=== PATIENT | female | born 1980 | race Caucasian/White ===

== ENCOUNTER 2017-04-30 08:46 | Day surgery (SDC) | payer OTHER ==
[~2017-04-30 08:46] MED LIST: Buffered Lidocaine 0.9% SYRIN* 5 ML/SYR SYRINGE INTRADERM ONE; Buffered Lidocaine 0.9% SYRIN* 5 ML/SYR SYRINGE ONE; Bupivacaine 0.5% SDV PF* 30 ML VIAL ONE; Clindamycin 900 MG IVPREMIX(* 900 MG/50 ML SDV IV ONE; Dexamethasone IV* 4 MG/ML 1 ML (4 MG) IV SLOW PU ONE; Dexamethasone IV* 4 MG/ML 1 ML (4 MG) ONE; Famotidine IV* 10 MG/ML 2 ML (20 mg) IV ONE; Famotidine IV* 10 MG/ML 2 ML (20 mg) ONE
[2017-04-30 08:58] LABS: Manual Entry Verification JEA0012; UR Preg Internal Control QC Line Present
[2017-04-30] MEDS ORDERED: fentaNYL* 50 MCG/ML 2 ML VIAL (100 MCG VIAL) ONE ×2 (10:14→10:22)
[2017-04-30] MEDS ORDERED: Midazolam* 1 MG/ML 5 ML VIAL (5 MG) ONE (10:14)
[2017-04-30] MEDS ORDERED: Lidocaine 2% PF * 5 ML VIAL ONE (10:22)
[2017-04-30] MEDS ORDERED: Propofol* 10 MG/ML 20 ML BTL IV PUSH ONE ×2 (10:22→10:24)
[2017-04-30] MEDS ORDERED: Succinylcholine* 20 MG/ML 10 ML VIAL ONE (10:22)
[2017-04-30] MEDS ORDERED: Ketorolac INJ* 30 MG/ML 1 ML VIAL ONE (10:42)
[2017-04-30] MEDS ORDERED: Ondansetron INJ* 2 MG/ML VIAL ONE (10:42)
[2017-04-30] MEDS ORDERED: PROCHLORPERAZINE INJ 5 MG/ML 2 ML VIAL IV PRN (10:55)
[2017-04-30] MEDS ORDERED: HYDROcodone/ACETAMIN 5-325 MG* 1 TAB PO PRN (10:55)
[2017-04-30] MEDS ORDERED: fentaNYL* 50 MCG/ML 2 ML VIAL (100 MCG VIAL) IV PRN (10:55)
[2017-04-30] MEDS ORDERED: EPHEDrine (Pressors)* 50 MG/ML VIAL ONE (10:56)
[2017-04-30] MEDS ORDERED: oxyCODONE/Acetamin 5/325 MG* TAB ONE (12:22)
[2017-04-30] MEDS: oxyCODONE/Acetamin 5/325 MG* TAB PO PRN ×2 (12:24→12:25)
[2017-04-30 12:28] VITALS: BP 111/64
--- NOTE | 2017-05-01 03:12 | OP ---
DATE OF OPERATION: 04/30/17 [facility] DATE OF : 76 SURGEON: Vinny Payan MD TECHNICAL SYSTEM ANALYST: Mirta Chirinos PA-C ANESTHESIOLOGIST: Sally Rodriguez MD ANESTHESIA: General PRE-OPERATIVE DIAGNOSIS: Left ankle instability, os subfibulare. POST-OPERATIVE DIAGNOSIS: Left ankle instability, os subfibulare. OPERATIVE PROCEDURE: Left modified Brostrom ligament repair and excision of os trigonum or os subfibulare. DESCRIPTION OF PROCEDURE: The patient was taken to the operating room, lateral positioning used. We made a longitudinal incision over the distal fibula. We incised directly along the anterior and distal capsule, reflecting away from the border of the fibula. The 1 x 1 cm os subfibulare was isolated in the distal capsule and removed and sent to pathology. We then reflected the periosteum anterior to posterior over the distal fibula, passing through-bone sutures of #1 Vicryl. These through-bone sutures were attached to the capsule using Ramos-Emanuel sutures, snugging the capsule up tightly to the distal and anterior fibula. A small slip of the extensor retinaculum was also mobilized with its more lateral base attached. We swung this up overlapping the repair and sewing into the periosteum with 2-0 Vicryl sutures. We then irrigated thoroughly, closing subcu with 2-0 Vicryl, miguel for the skin, and a compression dressing and plaster splint applied. [id number]/[facility] #: [id number] MTDD
== END 2017-04-30 12:45 | disposition home or self-care (01) ==
LOC: OR 08:46
PROVIDERS: ATTEND Orthopaedic Surgery
DX: M25.372 Other instability, left ankle (principal); J45.909 Unspecified asthma, uncomplicated; G47.33 Obstructive sleep apnea (adult) (pediatric); E78.5 Hyperlipidemia, unspecified; Z68.38 Body mass index [BMI] 38.0-38.9, adult; D86.9 Sarcoidosis, unspecified
CPT/HCPCS: 81025; A9270-GY; C1776; J0330; J1100; J1885; J2250; J2405; J2704; J3010

== ENCOUNTER 2017-11-07 10:26 | Emergency (ER) | payer OTHER ==
[2017-11-07 10:45] VITALS: BP 132/75
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
--- NOTE | 2017-11-07 11:54 | RAD ---
CLINICAL HISTORY: Left mid back pain and abdominal pain COMPARISON: February 09, 2016 TECHNIQUE: Multiple contiguous axial CT scans were obtained of the abdomen and pelvis, without intravenous contrast enhancement. Coronal and sagittal multiplanar reformations are submitted for review. Oral contrast was not administered. FINDINGS: The study is limited by the lack of intravenous contrast. This limits evaluation of the solid organs and vasculature. LUNG BASES: The lung bases are clear. LIVER: The liver is normal in shape, size, contour, and attenuation. BILE DUCTS: There is no intrahepatic or extrahepatic biliary dilatation. GALLBLADDER: The gallbladder is not visualized. Surgical clips are noted in the gallbladder fossa. PANCREAS: The pancreas is normal, without mass or ductal dilatation. SPLEEN: Normal in size and appearance. UPPER GI TRACT: Evaluation of the gastrointestinal tract is limited by incomplete gastric distention. The upper GI tract is unremarkable. SMALL BOWEL AND MESENTERY: The small bowel is normal in contour, course, and caliber. There is no obstruction or dilatation. There is mild stranding of the mesenteric fat with multiple small lymph nodes at the root of small bowel mesentery. This is stable from February 09, 2016. COLON: There are scattered diverticula of the distal colon. There is no pericolonic inflammatory change. There is a tubular, vermiform, hollow viscus that is blind ending, and originates from the cecum, consistent with a normal appendix. There is no periappendiceal inflammatory change. This is best seen on axial images 130-140. ADRENALS: Again noted is low-attenuation left adrenal mass measuring approximately 5.8 cm in size. This is stable from the previous examination. KIDNEYS: There is a punctate nonobstructing left renal calyceal stone in the midpole of left kidney measuring 0.2 cm. There is no hydronephrosis. This is stable from the previous examination. There is increased density of the renal pyramids suggestive of medullary nephrocalcinosis, also stable. BLADDER: The bladder is incompletely distended but is grossly normal. PELVIC ORGANS: The uterus and adnexa are grossly normal for technique. AORTA: The aorta is normal. IVC: Unremarkable LYMPH NODES: There is no lymphadenopathy by size criteria. ABDOMINAL WALL: There is no evidence for abdominal wall hernia. BONES AND SOFT TISSUES: The bones and soft tissues are unremarkable. OTHER: None IMPRESSION: 1. STABLE, PUNCTATE NONOBSTRUCTING LEFT RENAL CALYCEAL STONE. NO HYDRONEPHROSIS. 2. STATUS POST CHOLECYSTECTOMY. 3. STABLE LEFT ADRENAL MASS. 4. MILD INFLAMMATORY CHANGE OF THE ROOT OF SMALL BOWEL MESENTERY SUGGESTIVE OF MESENTERIC PANNICULITIS
== END 2017-11-07 12:29 | disposition home or self-care (01) ==
LOC: UCEAST 10:26
DX: K65.4 Sclerosing mesenteritis (principal); N20.0 Calculus of kidney; E27.9 Disorder of adrenal gland, unspecified; R30.0 Dysuria; E03.9 Hypothyroidism, unspecified; J45.909 Unspecified asthma, uncomplicated; R56.9 Unspecified convulsions; Z90.49 Acquired absence of other specified parts of digestive tract; Z88.6 Allergy status to analgesic agent; Z88.5 Allergy status to narcotic agent; Z88.0 Allergy status to penicillin; Z87.891 Personal history of nicotine dependence
CPT/HCPCS: 74176; 81003; 99212; G0463

== ENCOUNTER 2018-01-17 02:57 | Emergency (ER) | payer OTHER ==
[2018-01-17] MEDS ORDERED: Acetaminophen TAB* 325 MG PO ONE (03:54)
[2018-01-17] MEDS ORDERED: NS 0.9% 1000 ML* 1,000 ML IV ONE (03:54)
[2018-01-17 04:20] LABS: ABS Basophils 0 10^3/ul (0-0.2); ABS Eosinophils 0.1 10^3/ul (0-0.6); ABS Lymphocytes 0.6 10^3/ul (1.0-4.8); ABS Monocytes 0.6 10^3/ul (0-0.8); ABS Neutrophils 7.8 10^3/ul (1.5-7.7); ABS Nucleated RBC 0 10^3/ul; Eosinophil % 0.6 % (0-6); Hematocrit 38 % (35-47); Hemoglobin 12.6 g/dl (12.0-16.0); Lymphocyte % 6.2 % (25-47); Mean Corpuscular HGB Conc 34 g/dl (31-36); Mean Corpuscular Hemoglobin 28 pg (27-31); Mean Corpuscular Volume 84 fL (80-97); Mean Platelet Volume 8.2 um3 (7.4-10.4); Nucleated Red Blood Cells % 0; Platelet Count 219 10^3/ul (150-450); Red Blood Count 4.49 10^6/ul (4.0-5.4); Red Cell Distribution Width 15 % (10.5-15)
[2018-01-17 04:35] LABS: EGFR Non-African American 54.7 (>60)
[2018-01-17 06:32] LABS: Urine Appearance Turbid; Urine Blood 2+ (Negative); Urine Color Yellow; Urine Ketones Negative (Negative); Urine Protein Negative (Negative); Urine Specific Gravity 1.025 (1.010-1.030); Urine Urobilinogen Negative (Negative)
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
[2018-01-17 07:06] VITALS: BP 123/70
--- NOTE | 2018-01-17 08:35 | RAD ---
HISTORY: Fever, cough COMPARISONS: January 09, 2018 VIEWS: 4: Frontal dual-energy and lateral views of the chest. FINDINGS: CARDIOMEDIASTINAL SILHOUETTE: The cardiomediastinal silhouette is normal. BRITTNEY: The brittney are normal. PLEURA: The costophrenic angles are sharp. No pleural abnormalities are noted. LUNG PARENCHYMA: The lungs are clear. ABDOMEN: The upper abdomen is clear. There is no subphrenic gas. BONES AND SOFT TISSUES: No bone or soft tissue abnormalities are noted. OTHER: An implantable platform architect is noted in the left anterior chest. IMPRESSION: NO ACTIVE CARDIOPULMONARY DISEASE.
== END 2018-01-17 07:05 | disposition home or self-care (01) ==
LOC: ED 02:57
DX: J11.1 Influenza due to unidentified influenza virus with other respiratory manifestations (principal); R50.9 Fever, unspecified; R05 Cough; Z87.891 Personal history of nicotine dependence
CPT/HCPCS: 36415; 71046; 80048; 81003; 81015; 85025; 87502; 99282; A9270-GY

== ENCOUNTER 2018-02-21 09:25 | Emergency (ER) | payer OTHER ==
[2018-02-21 09:53] VITALS: BP 140/90
[2018-02-21] MEDS ORDERED: Cyclobenzaprine TAB* 10 MG PO ONE (10:16)
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
== END 2018-02-21 11:25 | disposition home or self-care (01) ==
LOC: UCEAST 09:25
DX: M50.323 Other cervical disc degeneration at C6-C7 level (principal); E07.9 Disorder of thyroid, unspecified; J45.909 Unspecified asthma, uncomplicated; Z88.6 Allergy status to analgesic agent; Z88.5 Allergy status to narcotic agent; Z88.0 Allergy status to penicillin; Z87.891 Personal history of nicotine dependence
CPT/HCPCS: 72050; 99213; A9270-GY; G0463

== ENCOUNTER 2018-04-23 17:36 | Emergency (ER) | payer OTHER ==
[2018-04-23 17:55] VITALS: BP 116/69
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
== END 2018-04-23 18:27 | disposition home or self-care (01) ==
LOC: UCEAST 17:36
DX: L25.8 Unspecified contact dermatitis due to other agents (principal); L73.9 Follicular disorder, unspecified; I10 Essential (primary) hypertension; Z88.6 Allergy status to analgesic agent; Z91.030 Bee allergy status; Z88.0 Allergy status to penicillin; Z88.8 Allergy status to other drugs, medicaments and biological substances; Z88.5 Allergy status to narcotic agent; Z87.891 Personal history of nicotine dependence
CPT/HCPCS: 99212; G0463

== ENCOUNTER 2018-12-03 09:10 | Emergency (ER) | payer OTHER ==
[2018-12-03 09:36] VITALS: BP 129/87
[2018-12-03] MEDS ORDERED: Acetaminophen TAB* 325 MG PO ONE (10:07)
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
== END 2018-12-03 11:10 | disposition home or self-care (01) ==
LOC: UCEAST 09:10
DX: S63.501A Unspecified sprain of right wrist, initial encounter (principal); F17.210 Nicotine dependence, cigarettes, uncomplicated; I10 Essential (primary) hypertension; J45.909 Unspecified asthma, uncomplicated; Z88.0 Allergy status to penicillin; Z88.5 Allergy status to narcotic agent; Z91.09 Other allergy status, other than to drugs and biological substances; Z91.030 Bee allergy status; W22.03XA Walked into furniture, initial encounter; Y92.9 Unspecified place or not applicable
CPT/HCPCS: 99212; A9270-GY; G0463

== ENCOUNTER 2018-12-13 14:23 | Emergency (ER) | payer OTHER ==
[2018-12-13 14:54] LABS: Influenza A Molecular NEGATIVE (Negative); Influenza B Molecular NEGATIVE (Negative)
[2018-12-13] MEDS ORDERED: Albuterol/Ipratropium NEB.SOL* Albuterol 2.5 MG/Ipratropium 0.5 MG 3 ML INH ONE (16:37)
[2018-12-13] MEDS ORDERED: Azithromycin TAB* 250 MG PO ONE (16:38)
[2018-12-13] MEDS ORDERED: predniSONE TAB* 20 MG PO ONE (16:39)
[2018-12-13 16:41] LABS: ABS Basophils 0.1 10^3/ul (0-0.2); ABS Eosinophils 0.2 10^3/ul (0-0.6); ABS Lymphocytes 2.1 10^3/ul (1.0-4.8); ABS Monocytes 0.5 10^3/ul (0-0.8); ABS Neutrophils 5.7 10^3/ul (1.5-7.7); ABS Nucleated RBC 0 10^3/ul; Eosinophil % 2.5 %; Hematocrit 39 % (35-47); Hemoglobin 12.8 g/dl (12.0-16.0); Lymphocyte % 24.4 %; Mean Corpuscular HGB Conc 33 g/dl (31-36); Mean Corpuscular Hemoglobin 28 pg (27-31); Mean Corpuscular Volume 85 fL (80-97); Mean Platelet Volume 7.8 fL (7.4-10.4); Nucleated Red Blood Cells % 0; Platelet Count 245 10^3/ul (150-450); Red Blood Count 4.56 10^6/ul (4.00-5.40); Red Cell Distribution Width 14 % (10.5-15); White Blood Count 8.6 10^3/ul (3.5-10.8)
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
[2018-12-13 17:00] LABS: Activated Partial Thrombo Time 31.3 seconds (26.0-36.3); INR 0.96 (0.77-1.02)
[2018-12-13 17:01] LABS: ALT 20 U/L (7-52); AST 22 U/L (13-39); Albumin 4.5 g/dL (3.2-5.2); Albumin/Globulin Ratio 1.4 (1-3); Alkaline Phosphatase 85 U/L (34-104); Anion Gap 6 mmol/L (2-11); BUN/Creatinine Ratio 23.2 (8-20); Blood Urea Nitrogen 22 mg/dL (6-24); C Reactive Protein 17.92 mg/L (<8.01); CO2 Carbon Dioxide 25 mmol/L (22-32); Calcium 9.5 mg/dL (8.6-10.3); Chloride 107 mmol/L (101-111); EGFR African American 78.8 (>60); EGFR Non-African American 65.2 (>60); Globulin 3.3 g/dL (2-4); Glucose 104 mg/dL (70-100); Potassium 3.6 mmol/L (3.5-5.0); Sodium 138 mmol/L (135-145); Total Protein 7.8 g/dL (6.4-8.9)
[2018-12-13 17:05] LABS: CKMB ng/mL 0.7 ng/mL (0.6-6.3)
[2018-12-13 17:08] LABS: HCG Pregnancy < 0.60 mIU/mL
[2018-12-13 17:20] VITALS: BP 129/75
== END 2018-12-13 17:18 | disposition home or self-care (01) ==
LOC: ED 14:23
DX: J18.9 Pneumonia, unspecified organism (principal); J98.01 Acute bronchospasm; J45.909 Unspecified asthma, uncomplicated; R06.02 Shortness of breath; R05 Cough; R06.2 Wheezing; R07.9 Chest pain, unspecified; R50.9 Fever, unspecified; Z88.0 Allergy status to penicillin; Z88.6 Allergy status to analgesic agent; I10 Essential (primary) hypertension; K21.9 Gastro-esophageal reflux disease without esophagitis; Z87.442 Personal history of urinary calculi; F17.210 Nicotine dependence, cigarettes, uncomplicated
CPT/HCPCS: 36415; 71046; 80053; 82553; 83605; 84484; 84702; 85025; 85379; 85610; 85730; 86140; 87040; 99283; A9270-GY; J7512

== ENCOUNTER 2019-02-06 08:41 | Emergency (ER) | payer OTHER ==
[2019-02-06] MEDS ORDERED: Ketorolac INJ* 60 MG/2 ML VIAL IM ONE (10:05)
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
[2019-02-06 11:05] VITALS: BP 120/84
== END 2019-02-06 11:03 | disposition home or self-care (01) ==
LOC: UCEAST 08:41
DX: M62.830 Muscle spasm of back (principal); M54.5 Low back pain; M51.37 Other intervertebral disc degeneration, lumbosacral region; M51.34 Other intervertebral disc degeneration, thoracic region; E78.5 Hyperlipidemia, unspecified; J44.9 Chronic obstructive pulmonary disease, unspecified; K21.9 Gastro-esophageal reflux disease without esophagitis; Z88.5 Allergy status to narcotic agent; Z88.0 Allergy status to penicillin; Z88.8 Allergy status to other drugs, medicaments and biological substances; Z88.6 Allergy status to analgesic agent; Z91.030 Bee allergy status; Z87.891 Personal history of nicotine dependence
CPT/HCPCS: 72070; 72110; 81003; 84702; 96372; 99212; G0463; J1885

== ENCOUNTER 2019-03-27 09:53 | Emergency (ER) | payer OTHER ==
--- OUTSIDE RECORDS SUMMARY | 2019-03-27 10:01 | XMS REPORT | Continuity of Care Document ---
:1980 External Reference #:[id number] Author Name DANIELLE Urbina Address [address] [place] [address] Care Team Providers Name Role Phone Julianna Knight M.D. Care Team Information Automatic Tire Tester Unavailable Julianna Knight M.D. Primary Care Physician Unavailable Payers Date Identification Numbers Payment Provider Subscriber Effective: 2013 Policy Number: [id number] [facility] Group Number: [id number] #[id number] [address] Group Name: Medicaid [place] [address] PayID: [id number] Problems Active Problems Provider Date Sleep apnea Sussy Gagnon M.D. Onset: 02/12/2019 Allergic rhinitis due to animals Sussy Gagnon M.D. Onset: 02/12/2019 Allergic rhinitis due to pollen Sussy Gagnon M.D. Onset: 02/12/2019 Uncomplicated moderate persistent asthma Sussy Gagnon M.D. Onset: 2018 Family History Date Family Member(s) Observation Comments General Heart Disease General Emphysema General Diabetes General Hypertension Father Heart Disease Father Emphysema Father due to Heart Attack () Mother Diabetes Mother Hypertension Social History Type Date Description Comments Sex Unknown Marital Status Legal Status: Lives With Spouse Home Environment Does not use air scientist immunology Home Environment Has a window air conditioner Home Environment Stairs are not present Home Environment There is no basement Home Environment Cotton Comforter Home Environment Pillows contain feathers Home Environment There are no draperies in the home Home Environment The home is harry Home Environment The floors are tile Home Environment The floors are carpeted Home Environment Uses baseboard heating Home Environment [place] first [place] Home Environment Water Source: City Tobacco Use Start: Unknown Home is not smoke-free Tobacco Use Start: Unknown Work is not smoke-free Pets 2 dogs present 13 years and 1 years, allowed in [place] Occupation paper delivery Spouse: Does the paper Hobbies: Phone games, TV ETOH Use Denies alcohol use Tobacco Use Start: Unknown End: Patient is a former Unknown smoker Recreational Drug Use Never Used Drugs Allergies, Adverse Reactions, Alerts Active Allergies Reaction Severity Comments Date Penicillin Nausea Moderate 02/12/2019 Morphine Nausea Moderate 02/12/2019 Antihistamines rash Moderate 02/12/2019 Medications Active Medications SIG Qnty Indications Ordering Date Provider Nasacort Allergy 24HR spray 1 spray into 1units Bita 02/12/2019 each nostril one RICK DonaldP-C 55mcg/Act Aerosol time daily Optichamber Julia Use With Inhalers Unknown Misc Clopidogrel Bisulfate Take Two Tablets Unknown By Mouth On 6 26 75mg Tablets 18 And 1 Tablet Daily Untill Procedure Hydrocortisone Apply To Affected Unknown 0.5% Cream Area S Twice Daily For 10 Days Clindamycin HCL Abby Fournier, 150mg M.D. Capsules Chlorhexidine Swish With 15 Unknown Gluconate Milliliters For 30 0.12% Solution Seconds And Spit use twice a day Prevail Super Plus Use Four Times A Unknown Underwear Large Day Misc Fluticasone Inhale 1 puff Into Unknown Propionate/Salmeterol Lungs Two Times A Diskus Day 500-50mcg/Dose Aerosol Nystatin Apply To Affected Unknown 631600Iaao/GM Area S Two Times Cream A Day as Needed SM Aspirin Adult Low Take One Tablet By Unknown Strength Mouth Every Day 81mg Tablets DR Spiriva Respimat Inhale Two Puffs Unknown By Mouth Every Day 1.25mcg/Act Aerosol Ventolin HFA Inhale Two Puffs Unknown 108(90Base) By Mouth Four mcg/Act Aerosol Times A Day as Needed Ipratropium Nkight, Julianna, [place]/Albuterol M.D. Sulfate 0.5-2.5(3)mg/3ML Solution Pantoprazole Sodium Take One Tablet By Unknown 40mg Mouth Every Tablets DR Morning On An Empty Stomach Levothyroxine Sodium Take One Tablet By Unknown Mouth Every Day 75mcg Tablets Atorvastatin Calcium Take One Tablet By Unknown 20mg Mouth AT Bedtime Tablets Topiramate Knight, Julianna, 100mg Tablets M.D. Methocarbamol Unknown 750mg Tablets Cyclobenzaprine HCL Unknown 10mg Tablets Montelukast Sodium Take One Tablet By Unknown 10mg Mouth Every Day Tablets Tramadol HCL Take One Tablet By Unknown 50mg Tablets Mouth Every 6 To 8 Hours as Needed For Pain Maximum Daily Dose3 Amitriptyline HCL Knight Julianna, 25mg M.D. Tablets Immunizations CPT Code Status Date Vaccine Lot # 73757 Given Unknown Pneumococcal Vaccine 71042 Given Unknown Influenza Vaccine Vital Signs Date Vital Result Comment 02/27/2019 10:58am Height 64 inches 5'4" Weight 246.00 lb Weight 111.586 kg Respiratory Rate 21 /min Heart Rate 80 /min O2 % BldC Oximetry 99 % BP Systolic 117 mmHg BP Diastolic 71 mmHg Asthma Control Test 22 BMI (Body Mass Index) 42.2 kg/m2 02/12/2019 9:44am Height 64 inches 5'4" Weight 242.00 lb Weight 109.771 kg Respiratory Rate 20 /min Heart Rate 95 /min O2 % BldC Oximetry 90 % BP Systolic 97 mmHg BP Diastolic 58 mmHg Asthma Control Test 8 Fractional Exhaled Nitric Oxide 12 BMI (Body Mass Index) 41.5 kg/m2 Procedures Date Code Description Status 02/12/2019 43072 Nitric Oxide Gas Determination Completed 02/12/2019 89564 Skin Test Scratch # Of Units ____ Completed Encounters Type Date Location Provider Dx Diagnosis Office Visit 02/27/2019 Parul Donald, J45.40 Moderate persistent 11:00a TELEPHONE TRIAGE NURSE-C asthma, uncomplicated J30.1 Allergic rhinitis due to pollen J30.81 Allergic rhinitis due to animal (cat) (dog) hair and dander G47.30 Sleep apnea, unspecified Office Visit 02/12/2019 9:40a [facility] Sussy Gagnon, J45.40 Moderate persistent M.D. asthma, uncomplicated J30.1 Allergic rhinitis due to pollen J30.81 Allergic rhinitis due to animal (cat) (dog) hair and dander G47.30 Sleep apnea, unspecified Plan of Treatment Future Appointment(s):03/06/2019 11:00 am - Allergy Injection at [id number] - LATANYA Urbina-CJ45.40 Moderate persistent asthma, sbbpcnbglastoA33.1 Allergic rhinitis due to hkkkorN32.81 Allergic rhinitis due to animal (cat) (dog) hair and welcfaV83.30 Sleep apnea, unspecifiedRecommendations:Continue all medications as prescribed.Refrain from wearing perfumes/scented colognes while visitingour office. Try the Nasacort 2 sprays daily Try the levocetirizine 1 daily Discussed the three ways in which allergies are managed: (1) avoidance measures; (2) medications; (3) allergy immunotherapy. Discussed environmental controls. -Dust mite control barriers are recommended for mattress and pillows. Make sure the product specifies a pore size rating of 2-5 microns. Bigger and unspecified pore sizes may not be effective. -Wash all bedding in hot water once weekly. -Keep bedroom humidity below 50%. Dust mites thrive well in high humidity. You can start shots in a week
[2019-03-27 10:08] VITALS: BP 125/76
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
== END 2019-03-27 11:15 | disposition home or self-care (01) ==
LOC: UCEAST 09:53
DX: S93.402A Sprain of unspecified ligament of left ankle, initial encounter (principal); W01.0XXA Fall on same level from slipping, tripping and stumbling without subsequent striking against object, initial encounter; Y92.9 Unspecified place or not applicable; Z88.5 Allergy status to narcotic agent; Z87.891 Personal history of nicotine dependence
CPT/HCPCS: 99213; G0463

== ENCOUNTER 2019-05-17 18:22 | Emergency (ER) | payer OTHER ==
[2019-05-17 18:28] VITALS: BP 144/83
[2019-05-17] MEDS ORDERED: Ketorolac INJ* 30 MG/ML 1 ML VIAL IM ONE (18:46)
[2019-05-17] MEDS ORDERED: Cyclobenzaprine TAB* 10 MG PO ONE ×2 (18:47→18:53)
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
== END 2019-05-17 19:19 | disposition home or self-care (01) ==
LOC: UCEAST 18:22
DX: M62.830 Muscle spasm of back (principal); K21.9 Gastro-esophageal reflux disease without esophagitis; Z88.5 Allergy status to narcotic agent; Z88.0 Allergy status to penicillin; Z87.891 Personal history of nicotine dependence
CPT/HCPCS: 81002; 81025; 96372; 99213; A9270-GY; G0463; J1885

== ENCOUNTER 2019-08-27 15:07 | Emergency (ER) | payer OTHER ==
--- OUTSIDE RECORDS SUMMARY | 2019-08-27 15:20 | XMS REPORT | Continuity of Care Document ---
:1980 External Reference #:[id number] Author Name Eamon Diaz MD (transmitted by agent of provider Delia Galo) Address [address], [address] [place] [address] Care Team Providers Name Role Phone Anitra Pearce MD - Gastroenterology Care Team Information Picker / Packer Jane Mcdaniels MD - Neurology Care Team Information Picker / Packer [phone] Bernard Melvin MD - Neurology Care Team Information Picker / Packer [phone] Wilfred Curiel MD - Gastroenterology Care Team Information Picker / Packer [phone] Nusrat Montes MD - Obstetrics & Care Team Information Picker / Packer [phone] Gynecology Julianna Knight M.D. - Family Medicine Care Team Information Picker / Packer [phone] Problems Active Problems Provider Date Generalized convulsive epilepsy Skylar Jarvis M.D. Onset: 02/29/2012 Gastroenteritis Kitty Pena M.D. Onset: 10/31/2013 Pure hypercholesterolemia Skylar Jarvis M.D. Onset: 03/19/2012 Neoplasm of uncertain behavior of adrenal Skylar Jarvis M.D. Onset: 2011 gland Intrinsic asthma without status Junior Jaquez M.D. Onset: 07/15/2012 asthmaticus Low back pain Junior Jaquez M.D. Onset: 07/15/2012 Cervical disc disorder Junior Jaquez M.D. Onset: 09/16/2012 Epilepsy Remington Wynn M.D. Onset: 03/12/2013 Mixed hyperlipidemia Junior Jaquez M.D. Onset: 04/09/2013 Obesity Junior Jaquez M.D. Onset: 04/09/2013 Dysphagia Junior Jaquez M.D. Onset: 04/09/2013 Chest pain Remington Wynn M.D. Onset: 02/16/2014 Chest pain Remington Wynn M.D. Onset: 02/16/2014 Sarcoidosis Baltazar Choi M.D. Onset: 09/22/2014 Right upper quadrant pain Baltazar Choi M.D. Onset: 10/06/2014 Exacerbation of asthma Esther Bhatt MD Onset: 11/10/2015 Obstructive sleep apnea syndrome Esther Bhatt MD Onset: 11/10/2015 Hypothyroidism Junior Jaquez M.D. 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 Onset: 2015 complex partial seizures Dyspnea Esther Bhatt MD Onset: 04/02/2017 Gastroesophageal reflux disease Junior Jaquez M.D. Onset: 07/04/2017 Essential hypertension Junior Jaquez M.D. Onset: 01/07/2018 Joint derangement Yunier Yeager MD Onset: 01/14/2018 Social History Type Date Description Comments Sex Unknown Tobacco Use Start: Unknown End: Former Cigarette Smoker Unknown Tobacco Use Start: Unknown End: Former Cigarette Smoker 1-5 Unknown Cigarettes Daily Cigarette Use Pack Years - 12 Smoking Status Reviewed: 07/10/19 Former Cigarette Smoker 1-5 Cigarettes Daily ETOH Use Never used alcohol Recreational Drug Use Denies Drug Use Tobacco Use Start: Unknown End: Patient is a former smoker Unknown Exercise Type/Frequency Exercises regularly Allergies, Adverse Reactions, Alerts Active Allergies Reaction Severity Comments Date Penicillins vomiting 02/28/2012 Morphine and Related vomiting 02/28/2012 Ibuprofen Nausea and Vomiting 03/01/2012 Bee Sting Contact dermatitis 05/09/2012 Aspirin hives 05/05/2014 Antihistamines throw up 06/15/2016 Betadine rash 04/29/2018 Medications Active Medications SIG Qnty Indications Ordering Date Provider Nicorette as needed for 48units F17.210 Skylar Javris, 06/16/2019 2mg Lozenges cravings not to M.D. exceed 5 a day Mupirocin apply a thin 22gm L08.9 Skylar Jarvis, 06/16/2019 2% Ointment layer on the skin M.D. of affected area twice a day for 5 days Aspirin Ec Low Dose 1 by mouth every 30tabs Cesar Maria 06/05/2019 81mg day Roly Zepeda Tablets DR Acetaminophen-Codeine one by mouth 28tabs M54.41 Mariama 05/19/2019 #4 every 6 hours as Roly Torres 300-60mg Tablets needed for pain Naproxen Sodium one by mouth 45tabs S93.402A Julianna Knight MD 03/31/2019 275mg twice a day for Tablets one week, then as needed. Take with food Amitriptyline HCL 1 by mouth at 30tabs Julianna Knight MD 03/13/2019 50mg bedtime Tablets Tramadol HCL 1 by mouth every 90tabs Julianna Knight MD 02/19/2019 50mg Tablets 6-8 hours as needed for pain Cyclobenzaprine HCL 1 tab 3x/day as 45tabs M62.830 Julianna Knight MD 2018 5mg needed for muscle Tablets spasm Nebulizer use as directed 1units J45.909 Julianna Knight MD 12/20/2018 Kit/Tubing/Mouthpiece for acute asthma Kit Pantoprazole Sodium Take One Tablet 30tabs K21.9 Julianna Knight MD 2016 40mg By Mouth Every Tablets DR Morning On Empty Stomach Briefs Overnight Large for use 4 times 120units Julianna Knight MD 2016 daily and as Misc needed waist is 45-58 inches, fitted briefs. needs velcro tabs Ipratropium inhale contents 90ml R06.02 Julianna Knight MD 01/22/2017 [place]/Albuterol of 1 vial via Sulfate nebulizer three 0.5-2.5(3)mg/3ML times a day as Solution needed for acute asthma attack Levothyroxine Sodium 1 by mouth every 90tabs E03.9 Julianna Knight MD 2015 day 75mcg Tablets [facility] Use as Directed 80units Vinny Briggs 10/26/2015 Large as Needed M.D. Misc Atorvastatin Calcium one tab by mouth 90tabs E78.89 Julianna Knight MD 2014 20mg every night at Tablets bedtime Topiramate take one tablet 240tabs Julianna Knight MD 12/09/2014 100mg Tablets by mouth twice a day Montelukast Sodium take 1 tablet by 90tabs Skylar Jarvis, 09/30/2014 10mg mouth every day M.D. Tablets Advair Diskus install 1 puff 60units J45.20 Skylar Jarvis, 09/09/2014 twice a day M.D. 500-50mcg/Dose Aerosol Ventolin HFA 2 puffs by mouth 18gm Julianna Knight MD 10/30/2013 108(90Base) four times a day mcg/Act Aerosol as needed Microchamber use with inhalers merrill Knight MD 05/12/2013 [facility] Nebulizer use as directed 1herrera Knight MD 05/01/2013 Machine three times daily for asthma dx: asthma j45.909 Spiriva Respimat 2 inhalations 12gm Julianna Knight MD once daily 1.25mcg/Act Aerosol Nystatin apply to affected 30units Julianna Knight MD [id number]/GM area(s) two times Cream a day as needed Xyzal Allergy 24HR 1 by mouth every Unknown 5mg day Tablets Nasacort Allergy 24HR 2 puffs each nare Unknown every in the 55mcg/Act Aerosol morning Allergy Shots every Unknown History Medications Breo Ellipta 1 puff by mouth 60units J45.998 [place] Novakid, 03/06/2019 - daily 04/05/2019 200-25mcg/Inh Aerosol Tramadol HCL 1 by mouth every 21tabs Julianna Knight, 02/10/2019 - 50mg 6-8 hours as 02/19/2019 Tablets needed for pain. MDD 3 Amitriptyline HCL one by mouth in 30tabs Julianna Knight 02/10/2019 - 25mg the evening 03/13/2019 Tablets Prednisone 3 tabs once a 30tabs J45.901 Julianna Knight, 01/16/2019 - 20mg Tablets day x 3 daysMD 03/05/2019 reduce by one tab every 3 days until finished Medications Administered in Office Medication SIG Qnty Indications Ordering Provider Date Records Fee Julianna Knight MD 05/13/2019 Injection PPD Injection Nurse Visit A 01/07/2018 Immunizations CPT Code Status Date Vaccine Lot # [id number] Given 06/07/2016 Pneumonia Vaccine [id number] Given 09/22/2015 Fluvirin Im 3Yrs And Older 02003 Given 08/04/2013 Flu Vaccine Split Virus Preservative Free For [id number] Indiv 3Yr Older [id number] Given 03/19/2011 Tdap - Tetanus/Diptheria/Acellular Pertussis [id number] Vital Signs Date Vital Result Comment 07/10/2019 10:39am Height 64 inches 5'4" Weight 255.00 lb Heart Rate 64 /min BP Systolic Sitting 120 mmHg Lue large cuff BP Diastolic Sitting 82 mmHg Lue large cuff Respiratory Rate 12 /min O2 % BldC Oximetry 96 % BMI (Body Mass Index) 43.8 kg/m2 06/16/2019 10:06am Height 64 inches 5'4" Weight 256.00 lb Heart Rate 102 /min BP Systolic Sitting 124 mmHg BP Diastolic Sitting 83 mmHg O2 % BldC Oximetry 98 % BMI (Body Mass Index) 43.9 kg/m2 Results Test Date Facility Test Result H/L Range Note Laboratory test 02/24/2019 [facility] Topamax <1.0 g/mL [address] (Topiramate) [place] [address] [phone] Hemoglobin A1c (Glyco HGB) 5.9 % High 4.0-5.6 2 Basic Metabolic 02/24/2019 [facility] Sodium 140 mmol/L Normal 135-[address] [place] [address] [phone] Potassium 3.9 mmol/L Normal 3.5-5.0 Chloride 106 mmol/L Normal 101-111 Co2 Carbon Dioxide 28 mmol/L Normal 22-32 Anion Gap 6 mmol/L Normal 2-11 Glucose 78 mg/dL Normal 70-100 Blood Urea Nitrogen 20 mg/dL Normal 6-24 Creatinine 0.95 mg/dL Normal 0.51-0.95 BUN/Creatinine Ratio 21.1 High 8-20 Calcium 9.5 mg/dL Normal 8.6-10.3 Egfr Non- 64.8 >60 Egfr 78.4 >60 3 CBC Auto 02/24/2019 [facility] White Blood 8.2 10^3/uL Normal 3.5-10.[address] [place] [address] [phone] Red Blood Count 4.78 10^6/uL Normal 3.70-4.87 Hemoglobin 13.3 g/dL Normal 12.0-16.0 Hematocrit 40 % Normal 35-47 Mean Corpuscular Volume 84 fL Normal 80-97 Mean Corpuscular Hemoglobin 28 pg Normal 27-31 Mean Corpuscular HGB Conc 33 g/dL Normal 31-36 Red Cell Distribution Width 15 % Normal 10.5-15 Platelet Count 255 10^3/uL Normal 150-450 Mean Platelet Volume 8.1 fL Normal 7.4-10.4 Abs Neutrophils 5.4 10^3/uL Normal 1.5-7.7 Abs Lymphocytes 2.0 10^3/uL Normal 1.0-4.8 Abs Monocytes 0.5 10^3/uL Normal 0-0.8 Abs Eosinophils 0.2 10^3/uL Normal 0-0.6 Abs Basophils 0.1 10^3/uL Normal 0-0.2 Abs Nucleated RBC 0.0 10^3/uL Granulocyte % 65.9 % Lymphocyte % 24.8 % Monocyte % 6.0 % Eosinophil % 2.3 % Basophil % 1.0 % Nucleated Red Blood Cells % 0.0 Laboratory test 02/24/2019 [facility] Immunoglobulin E 132 kU/L <= 214 [address] (Ige) [place] [address] [phone] Laboratory test 02/06/2019 [facility] Poc , Negative Negative [address] [place] [address] [phone] Poc Urinalysis 02/06/2019 [facility] Poc Glucose, Urine Negative Negative [address] [place] [address] [phone] Poc Bilirubin, Urine Negative Negative Poc Ketone, Urine Negative Negative Poc Specific [place], Urine 1.025 Normal 1.010-1.030 Poc Blood, Urine Trace-lysed Abnormal Negative Poc pH, Urine 5.0 Normal 5-9 Poc Protein, Urine Negative Negative Poc Urobilinogen, Urine 0.2 Negative Poc Nitrite, Urine Negative Negative Poc Leukocytes, Urine Negative Negative Poc Color, Urine Yellow Poc Clarity, Urine Clear 6 1 REFERENCE VALUE Reference values depend on clinical use: Anticonvulsant: 5.0-20.0 mcg/mL Psychiatric: 2.0-8.0 mcg/mL ADDITIONAL INFORMATION This test was developed and its performance characteristics determined by [facility] in a manner consistent with CLIA requirements. This test has not been cleared or approved by the U.S. Food and Drug Administration. Test Performed by: [facility] [place] [address] 2 Therapeutic target for the treatment of diabetes mellitus patients is <7% HBA1C, and in selective patients <6.0%. Please refer to [place] [employer] Association diabetic care guidelines for further information. 3 Because ethnic data is not always readily available, this report includes an eGFR for both -Americans and non- Americans. The National Kidney Disease Education Program (NKDEP) does not endorse the use of the MDRD equation for patients that are not between the ages of 18 and 70, are , have extremes of body size, muscle mass, or nutritional status, or are non- or non-. According to the National Kidney Foundation, irrespective of diagnosis, the stage of the disease is based on the level of kidney function: Stage Description GFR(mL/min/1.73 m(2)) 1 Kidney damage with normal or decreased GFR 90 2 Kidney damage with mild decrease in GFR 60-89 3 Moderate decrease in GFR 30-59 4 Severe decrease in GFR 15-29 5 Kidney failure <15 (or dialysis) 4 Test Performed by: [facility] [place] [address] 5 Leather Belt Shaper: [id number] Test Disclaimer: Positive bacteria, red blood cells, white blood cells, early , low specific gravity, and other factors may cause false positive or negative results. It is recommended to retest unexpected results within 24 to 72 hours with a serum test when applicable. If is still suspected, please repeat test after 48 to 72 hours. 6 Leather Belt Shaper: [id number] Procedures Date Code Description Status 02/24/2019 18785 Diffusing Capacity Completed 02/24/2019 30650 Plethysmography Determination Lung Volumes & Per Airway Completed Resist 02/24/2019 26110 Pulmonary Function><Bronchodil Completed 01/16/2019 45120 Admin Of Inj Completed 01/16/2019 03887 Inhalation TX For Acute Airway Obstruction Completed W/Nebulizer/Inhaler 10/03/2018 84418335 Mammogram Completed 06/25/2014 29378305 Colonoscopy Completed 04/10/2014 60878110 Colonoscopy Completed 09/09/2013 42386830 Mammogram Completed Medical Devices Description No Information Available Encounters Type Date Location Provider Dx Diagnosis Office Visit 06/16/2019 [facility] Skylar Jarvis, L08.9 Local infection of 10:10a Zaid Dominguez M.D. the skin and subcutaneous tissue, unsp G40.909 Epilepsy, unsp, not intractable, without status epilepticus J45.909 Unspecified asthma, uncomplicated E78.5 Hyperlipidemia, unspecified E03.9 Hypothyroidism, unspecified F17.210 Nicotine dependence, cigarettes, uncomplicated Office Visit 06/05/2019 [facility] S93.402D Sprain of 10:45a [facility] Payan unspecified C.M.A. ligament of left ankle, subs encntr Office Visit 05/20/2019 Macrina Casillas S93.402D Sprain of 10:00a [facility] unspecified C.M.A. ligament of left ankle, subs encntr Office Visit 05/19/2019 [facility] Julianna Knight, M54.41 Lumbago with 10:40a Zaid Dominguez MD sciatica, right side Office Visit 04/01/2019 [facility] S93.402A Sprain of 10:30a [facility] Payan unspecified C.M.A. ligament of left ankle, init encntr Office Visit 03/31/2019 [facility] Fredrick Knight S93.402D Sprain of 2:40p Zaid Dominguez MD unspecified ligament of left ankle, subs encntr Office Visit 03/13/2019 [facility] Julianna Knight M54.5 Low back pain 10:00a Zaid Dominguez MD Office Visit 03/06/2019 [facility] Eamon Diaz J45.998 Other asthma 9:45a [facility] G47.33 Obstructive sleep apnea (adult) (pediatric) D86.9 Sarcoidosis, unspecified Office Visit 02/10/2019 2:20p [facility] Julianna Knight M54.5 Low back pain Zaid Dominguez MD Office Visit 01/25/2019 10:45a Pul[facility] And Eamon Diaz J45.998 Other asthma [facility] G47.33 Obstructive sleep apnea (adult) (pediatric) Office Visit 01/16/2019 11:00a Rodolfo Knight J45.901 Unspecified asthma Zaid Cardona MD with (acute) [address] exacerbation M62.830 Muscle spasm of back Assessments Date Code Description Provider 07/10/2019 J45.998 Other asthma Eamon Diaz MD 07/10/2019 G47.30 Sleep apnea, unspecified Eamon Diaz MD 06/16/2019 L08.9 Local infection of the skin and subcutaneous Skylar Jarvis M.D. tissue, unspecified 06/16/2019 G40.909 Epilepsy, unspecified, not intractable, Skylar Jarvis M.D. without status epilepticus 06/16/2019 J45.909 Unspecified asthma, uncomplicated Skylar Jarvis M.D. 06/16/2019 E78.5 Hyperlipidemia, unspecified Skylar Jarvis M.D. 06/16/2019 E03.9 Hypothyroidism, unspecified Skylar Jarvis M.D. 06/16/2019 F17.210 Nicotine dependence, cigarettes, Skylar Jarvis M.D. uncomplicated 06/05/2019 S93.402D Sprain of unspecified ligament of left Vinny Payan M.D. ankle, subsequent enc 05/20/2019 S93.402D Sprain of unspecified ligament of left Vinny Payan M.D. ankle, subsequent enc 05/19/2019 M54.41 Lumbago with sciatica, right side Julianna Knight MD 05/13/2019 G40.909 Epilepsy, unspecified, not intractable, Julianna Knight MD without status epilepticus 05/13/2019 J45.909 Unspecified asthma, uncomplicated Julianna Knight MD 05/13/2019 Z12.31 Encounter for screening mammogram for Julianna Knight MD malignant neoplasm of breast 05/13/2019 N76.0 Acute vaginitis Julianna Knight MD 04/01/2019 S93.402A Sprain of unspecified ligament of left Vinny Payan M.D. ankle, initial encoun 03/31/2019 S93.402D Sprain of unspecified ligament of left Julianna Knight MD ankle, subsequent enc 03/13/2019 M54.5 Low back pain Julianna Knight MD 03/06/2019 J45.998 Other asthma Eamon Diaz MD 03/06/2019 G47.33 Obstructive sleep apnea (adult) (pediatric) Eamon Diaz MD 03/06/2019 D86.9 Sarcoidosis, unspecified Eamon Diaz MD 02/24/2019 J45.909 Unspecified asthma, uncomplicated Esther Bhatt MD 02/10/2019 M54.5 Low back pain Julianna Knight MD 01/25/2019 J45.998 Other asthma Eamon Diaz MD 01/25/2019 G47.33 Obstructive sleep apnea (adult) (pediatric) Eamon Diaz MD 01/16/2019 J45.901 Unspecified asthma with (acute) exacerbation Julianna Knight MD 01/16/2019 M62.830 Muscle spasm of back Julianna Knight MD Plan of Treatment Future Appointment(s):07/18/2019 10:00 am - Julianna Knight MD at [facility] - [facility]07/28/2019 4:20 pm - Henrik James M.D. at [facility]07/10/2019 - Eamon Diaz MDJ45.998 Other asthmaComments:The patient was using Advair and Breo. I have told her to use Breo instead of Advair. the patient should continue to use Singulair Spiriva and Ventolin when necessary. She should continue to see an clinical nurse specialist for allergy shots and continue to use Nasacort. She is no longer smoking which is very positive.G47.30 Sleep apnea, unspecifiedNew Orders:Sleep Study Over Night & Cpap Titration If Positive, Ordered: 07/10/19Comments:I will order a sleep study.Follow up:3 months. 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
[2019-08-27 15:55] LABS: ABS Basophils 0.1 10^3/ul (0-0.2); ABS Eosinophils 0.2 10^3/ul (0-0.6); ABS Lymphocytes 1.6 10^3/ul (1.0-4.8); ABS Monocytes 0.4 10^3/ul (0-0.8); ABS Neutrophils 7.8 10^3/ul (1.5-7.7); Eosinophil % 1.6 %; Hematocrit 39 % (35-47); Hemoglobin 12.9 g/dL (12.0-16.0); Lymphocyte % 16.3 %; Mean Corpuscular HGB Conc 33 g/dL (31-36); Mean Corpuscular Hemoglobin 28 pg (27-31); Mean Corpuscular Volume 84 fL (80-97); Mean Platelet Volume 7.8 fL (7.4-10.4); Nucleated Red Blood Cells % 0.1; Platelet Count 268 10^3/uL (150-450); Red Cell Distribution Width 15 % (10-15); White Blood Count 10.1 10^3/uL (3.5-10.8)
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
[2019-08-27 16:21] LABS: ALT 23 U/L (7-52); AST 22 U/L (13-39); Albumin 4.4 g/dL (3.2-5.2); Albumin/Globulin Ratio 1.3 (1-3); Alkaline Phosphatase 81 U/L (34-104); Anion Gap 8 mmol/L (2-11); BUN/Creatinine Ratio 22.2 (8-20); Blood Urea Nitrogen 18 mg/dL (6-24); CO2 Carbon Dioxide 25 mmol/L (22-32); Calcium 9.7 mg/dL (8.6-10.3); Chloride 108 mmol/L (101-111); EGFR African American 94.3 (>60); EGFR Non-African American 77.9 (>60); Globulin 3.4 g/dL (2-4); Glucose 113 mg/dL (70-100); Potassium 3.5 mmol/L (3.5-5.0); Sodium 141 mmol/L (135-145); Total Protein 7.8 g/dL (6.4-8.9)
[2019-08-27 16:25] LABS: Acetaminophen < 15 mcg/mL; Alcohol < 10 mg/dL (<10); Salicylate < 2.50 mg/dL (<30)
[2019-08-27 16:39] VITALS: BP 138/98
[2019-08-27 16:54] LABS: Urine Appearance Clear; Urine Bacteria Absent (Absent); Urine Bilirubin Negative (Negative); Urine Blood 1+ (Negative); Urine Color Yellow; Urine Glucose Negative (Negative); Urine Ketones Negative (Negative); Urine Nitrite Negative (Negative); Urine Protein Negative (Negative); Urine Red Blood Cell Trace(0-2/hpf) (Absent); Urine Specific Gravity 1.024 (1.010-1.030); Urine Squamous Epithelial Cell Present (Absent); Urine Urobilinogen Negative (Negative); Urine White Blood Cell Trace(0-5/hpf) (Absent)
[2019-08-27 17:14] LABS: Urine Benzodiazepine Screen None Detected (None Detect); Urine Opiates Screen None Detected (None Detect)
== END 2019-08-27 16:36 | disposition home or self-care (01) ==
LOC: ED 15:07
DX: F91.8 Other conduct disorders (principal); E07.9 Disorder of thyroid, unspecified; E78.00 Pure hypercholesterolemia, unspecified; I10 Essential (primary) hypertension; K21.9 Gastro-esophageal reflux disease without esophagitis; F43.10 Post-traumatic stress disorder, unspecified; Z79.899 Other long term (current) drug therapy; Z88.6 Allergy status to analgesic agent; Z88.5 Allergy status to narcotic agent; Z88.0 Allergy status to penicillin; Z88.8 Allergy status to other drugs, medicaments and biological substances
CPT/HCPCS: 36415; 80053; 80307; 80320; 80329; 81003; 81015; 84443; 85025; 87086; 99282; G0480

== ENCOUNTER 2019-10-01 11:18 | Emergency (ER) | payer OTHER ==
[2019-10-01 12:04] VITALS: BP 121/63
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
== END 2019-10-01 12:22 | disposition home or self-care (01) ==
LOC: UCEAST 11:18
DX: J06.9 Acute upper respiratory infection, unspecified (principal); J45.909 Unspecified asthma, uncomplicated; F17.210 Nicotine dependence, cigarettes, uncomplicated; Z88.6 Allergy status to analgesic agent; Z91.030 Bee allergy status; Z88.0 Allergy status to penicillin; Z88.5 Allergy status to narcotic agent; Z88.8 Allergy status to other drugs, medicaments and biological substances
CPT/HCPCS: 99212; G0463

== ENCOUNTER 2019-10-29 03:48 | Emergency (ER) | payer OTHER ==
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
[2019-10-29 05:00] VITALS: BP 119/89
--- OUTSIDE RECORDS SUMMARY | 2019-10-29 05:06 | XMS REPORT | Continuity of Care Document ---
:1980 External Reference #:[id number] Author Name Lianet Gold MD (transmitted by agent of provider Lyssa Concepcion) Address [address] [place] [address] Care Team Providers Name Role Phone Anitra Pearce MD - Gastroenterology Care Team Information Senior It Security Analyst [phone] Jane Mcdaniels MD - Neurology Care Team Information Senior It Security Analyst [phone] Bernard Melvin MD - Neurology Care Team Information Senior It Security Analyst [phone] Wilfred Curiel MD - Gastroenterology Care Team Information Senior It Security Analyst Nusrat Montes MD - Obstetrics & Care Team Information Senior It Security Analyst Gynecology Julianna Knight M.D. - Family Medicine Care Team Information Senior It Security Analyst Problems Active Problems Provider Date Generalized convulsive [...] Pack Years - 12 Smoking Status Reviewed: 10/02/19 Former Cigarette Smoker 1-5 Cigarettes Daily ETOH [...] Medications SIG Qnty Indications Ordering Date Provider Benzonatate take 1 tab by 30caps R05 Lianet 10/02/2019 100mg mouth up to 3 MD Asif Capsules times daily as needed for cough Nicorette as needed for 48units F17.210 Skylar Jarvis, 06/16/2019 2mg Lozenges cravings not to M.D. exceed 5 a day Mupirocin apply a thin 22gm L08.9 Skylar Jarvis, 06/16/2019 2% Ointment layer on the skin M.D. of affected area twice a day for 5 days Aspirin Ec Low Dose 1 by mouth every 30tabs Cesar DJody 06/05/2019 81mg day Brand, M.DJody Tablets DR Acetaminophen-Codeine one by mouth 28tabs M54.41 Julianna Knight MD 2018 #4 every 6 hours as 300-60mg Tablets needed for pain Naproxen Sodium [...] velcro tabs Ipratropium inhale contents 90ml R06.02 Mariama 01/22/2017 [place]/Albuterol of 1 vial via [facility] Torres Sulfate nebulizer three 0.5-2.5(3)mg/3ML times a day as Solution needed for acute asthma attack Levothyroxine Sodium 1 by mouth every 90tabs E03.9 Julianna Knight MD 2015 day 75mcg Tablets [facility] Use as Directed 80units Vinny [place], 10/26/2015 Large as Needed M.D. [facility] Atorvastatin Calcium one tab by mouth 90tabs E78.89 Julianna Knight MD 2014 20mg every night at Tablets bedtime Topiramate take one tablet 240tabs Julianna Knight MD 12/09/2014 100mg Tablets by mouth twice a day Montelukast Sodium Take One Tablet 90tabs Syklar Jarvis, 09/30/2014 10mg By Mouth Every M.D. Tablets Day Advair Diskus install 1 puff 60units J45.20 Skylar Jarvis, 09/09/2014 twice a day M.D. 500-50mcg/Dose Aerosol Ventolin HFA 2 puffs by mouth 18gm Lianet 10/30/2013 108(90Base) four times a day MD Asif mcg/Act Aerosol as needed Microchamber use with inhalers 1units Julianna Knight MD 05/12/2013 [facility] Portable Nebulizer use as directed 1unparviz Knight MD 05/01/2013 Machine three times daily for asthma dx: asthma j45.909 Naproxen Take One Tablet Unknown 500mg Tablets By Mouth Twice A Day as Needed For Pain With Food Methocarbamol Unknown 750mg Tablets Prevail Super Plus Use Up To 4 Times Unknown Underwear Large Daily And as Misc Needed Cyclobenzaprine HCL Maliha Gutierrez, 10mg Tablets Afluria Quadrivalent Inject as Unknown Directed 2019-20 Suspension Breo Ellipta Inhale One puff Unknown By Mouth Every 100-25mcg/Inh Aerosol Day Optichamber Julia For Use With Unknown Mis Inhalers Doxycycline Hyclate Unknown 100mg Capsules Allergy Shots every Unknown Nasacort Allergy 24HR 2 puffs each nare Unknown every in the 55mcg/Act Aerosol morning Xyzal Allergy 24HR 1 by mouth every Unknown 5mg day Tablets Nystatin apply to affected 30units Julianna Knight MD [id number]/GM area(s) two times Cream a day as needed Spiriva Respimat 2 inhalations 12gm Julianna Knight MD once daily 1.25mcg/Act Aerosol History Medications Breo Ellipta 1 by mouth 60units J45.998 Eamon Novakalex, 07/10/2019 - every day 08/09/2019 100-25mcg/Inh Aerosol Medications Administered in Office Medication SIG Qnty Indications Ordering Provider Date Records Fee Henrik James, 09/08/2019 Injection M.DJody Records Fee Julianna Knight MD 05/13/2019 Injection PPD Nurse Visit A 01/07/2018 Injection Immunizations CPT Code Status Date Vaccine Lot # [id number] Given 07/14/2019 Influ Virus Vaccine, Quadrivalent, Split Virus, [place] [id number] Given 06/07/2016 Pneumonia Vaccine [id number] Given 09/22/2015 Fluvirin Im 3Yrs And Older [id number] Given 08/04/2013 Flu Vaccine Split Virus Preservative Free For [id number] Indiv 3Yr Older [id number] Given 03/19/2011 Tdap - Tetanus/Diptheria/Acellular Pertussis [id number] Vital Signs Date Vital Result Comment 10/02/2019 11:44am Height 64 inches 5'4" Weight 267.00 lb Heart Rate 92 /min BP Systolic 130 mmHg BP Diastolic 82 mmHg Body Temperature 98.6 F O2 % BldC Oximetry 95 % BMI (Body Mass Index) 45.8 kg/m2 07/10/2019 10:39am Height 64 inches 5'4" Weight 255.00 lb Heart Rate 64 /min BP Systolic Sitting 120 mmHg Lue large cuff BP Diastolic Sitting 82 mmHg Lue large cuff Respiratory Rate 12 /min O2 % BldC Oximetry 96 % BMI (Body Mass Index) 43.8 kg/m2 Results Test Acquired Date Facility Test Result H/L Range Note CBC Auto 08/27/2019 [facility] White Blood 10.1 10^3/uL Normal 3.5-10.[address] [place] [address] [phone] Red Blood Count 4.60 10^6/uL Normal 3.70-4.87 Hemoglobin 12.9 g/dL Normal 12.0-16.0 Hematocrit 39 % Normal 35-47 Mean Corpuscular Volume 84 fL Normal 80-97 Mean Corpuscular Hemoglobin 28 pg Normal 27-31 Mean Corpuscular HGB Conc 33 g/dL Normal 31-36 Red Cell Distribution Width 15 % Normal 10-15 Platelet Count 268 10^3/uL Normal 150-450 Mean Platelet Volume 7.8 fL Normal 7.4-10.4 Abs Neutrophils 7.8 10^3/uL High 1.5-7.7 Abs Lymphocytes 1.6 10^3/uL Normal 1.0-4.8 Abs Monocytes 0.4 10^3/uL Normal 0-0.8 Abs Eosinophils 0.2 10^3/uL Normal 0-0.6 Abs Basophils 0.1 10^3/uL Normal 0-0.2 Abs Nucleated RBC 0.0 10^3/uL Granulocyte % 77.5 % Lymphocyte % 16.3 % Monocyte % 4.0 % Eosinophil % 1.6 % Basophil % 0.6 % Nucleated Red Blood Cells % 0.1 Comp Metabolic 08/27/2019 [facility] Sodium 141 mmol/L Normal 135-[address] [place] [id number] [phone] Potassium 3.5 mmol/L Normal 3.5-5.0 Chloride 108 mmol/L Normal 101-111 Co2 Carbon Dioxide 25 mmol/L Normal 22-32 Anion Gap 8 mmol/L Normal 2-11 Glucose 113 mg/dL High 70-100 Blood Urea Nitrogen 18 mg/dL Normal 6-24 Creatinine 0.81 mg/dL Normal 0.51-0.95 BUN/Creatinine Ratio 22.2 High 8-20 Calcium 9.7 mg/dL Normal 8.6-10.3 Total Protein 7.8 g/dL Normal 6.4-8.9 Albumin 4.4 g/dL Normal 3.2-5.2 Globulin 3.4 g/dL Normal 2-4 Albumin/Globulin Ratio 1.3 Normal 1-3 Total Bilirubin 0.30 mg/dL Normal 0.2-1.0 Alkaline Phosphatase 81 U/L Normal 34-104 Alt 23 U/L Normal 7-52 Ast 22 U/L Normal 13-39 Egfr Non- 77.9 >60 Egfr 94.3 >60 1 Laboratory test 08/27/2019 [facility] Acetaminophen < 15 g/mL [address] [place] [address] [phone] Alcohol < 10 mg/dL Normal <10 Salicylate < 2.50 mg/dL <30 TSH (Thyroid Stim Horm) 7.00 mcIU/mL High 0.34-5.60 Urinalysis Profile 08/27/2019 [facility] [place] [address] [phone] Urine Appearance Clear Urine Specific [place] 1.024 Normal 1.010-1.030 Urine pH 5.0 Normal 5-9 Urine Urobilinogen Negative Negative Urine Ketones Negative Negative Urine Protein Negative Negative Urine Leukocytes Negative Negative Urine Blood 1+ Abnormal Negative Urine Nitrite Negative Negative Urine Bilirubin Negative Negative Urine Glucose Negative Negative Urine White Blood Cell Trace(0-5/hpf) Absent Urine Red Blood Cell Trace(0-2/hpf) Absent Urine Bacteria Absent Absent Urine Squamous Epithelial Cell Present Abnormal Absent Urine Drug 08/27/2019 [facility] Urine None Detected None Detect [facility] [place] [address] Screen [phone] Urine Barbiturates Screen None Detected None Detect Urine Benzodiazepine Screen None Detected None Detect Urine Cannabinoids Screen None Detected None Detect Urine Cocaine Screen None Detected None Detect Urine Opiates Screen None Detected None Detect Urine Phencyclidine Screen None Detected None Detect 3 Urine Culture And 08/27/2019 [facility] Urine Culture SEE RESULT [address] [place] [address] [phone] Lipid Profile 07/11/2019 [facility] Triglycerides 238 mg/dL 5 (Trig/Chol/HDL) [facility] [place] [address] [phone] Cholesterol 248 mg/dL 6 HDL Cholesterol 38.7 mg/dL 7 LDL Cholesterol 162 mg/dL 8 Laboratory 07/11/2019 [facility] TSH (Thyroid 4.26 Normal 0.34 -5.[address] Stim Horm) mcIU/[place] [address] [phone] T3 Free 3.30 pg/mL Normal 2.5-3.9 Free T4 (Free Thyroxine) 0.65 ng/dL Normal 0.61-1.12 1 Because ethnic data is not always readily [...] 15-29 5 Kidney failure <15 (or dialysis) 2 Therapeutic concentration: <50 ug/mL Toxic concentration: >120 ug/mL 3 The urine specimen was tested at the listed cutoffs: Drug class test level (ng/mL) Amphetamines 500 Barbiturates 200 Benzodiazepine metabolites 200 Cocaine metabolites 150 Cannabinoids 50 Opiates 300 Pcp 25 Specimen was received without chain of custody. Results should be used for medical purposes only. 4 SEE RESULT BELOW Name: BOB MORALES : [address]: Hang Jara MD Acct: [id number] Unit: [id number] AGE: 39 Location: ED Re08/27/19 SEX: F Status: REG ER SPEC: [id number] SISI: 08/27/19-[address] [facility] [address]: Cinthya SANTILLAN REQ: [id number] RECD: 08/27/19-1639 STATUS:COMP [facility] DR: Hang Knight MD _ SOURCE: URINE SPDESC: ORDERED: Urine Culture Procedure Result Reported Site Urine Culture Final 08/28/19- 1751 ML No growth of clinically significant organisms * ML - Main Lab . END OF REPORT DEPARTMENT OF PATHOLOGY, [address] [place] [address] Darek Fry M.D. Director [facility] # [id number] 5 Desirable: <150 Borderline High: 150-199 High: 200-499 Very High: >500 6 Desirable: <200 Borderline High: 200-239 High: >239 7 Low: <40 Desirable: 40-60 High: >60 8 Desirable: <100 Near Optimal: 100-129 Borderline High: 130-159 High: 160-189 Very High: >189 Procedures Date Code Description Status 08/02/2019 89254 Sleep Study Unattended,HRT Rate,Oxygen Sat,Resp Completed Effort/Airflow 10/03/2018 35645594 Mammogram Completed 06/25/2014 90140442 Colonoscopy Completed 04/10/2014 63316624 Colonoscopy Completed 09/09/2013 14973089 Mammogram Completed Medical Devices Description No Information Available Encounters Type Date Location Provider Dx Diagnosis Office Visit 07/10/2019 Pulmonology And Eamon Diaz MD J45.998 Other asthma 10:45a [facility] G47.30 Sleep apnea, unspecified Office Visit 06/16/2019 10:10a [facility] Internal Skylar L08.9 Local infection of Zaid Jarvis M.D. the skin and Ccmob subcutaneous tissue, unsp G40.909 Epilepsy, unsp, not intractable, without status epilepticus J45.909 Unspecified asthma, uncomplicated E78.5 Hyperlipidemia, unspecified E03.9 Hypothyroidism, unspecified F17.210 Nicotine dependence, cigarettes, uncomplicated Office Visit 06/05/2019 Ab Casillas S93.402D Sprain of 10:45a [facility] unspecified [place] ligament of left ankle, subs encntr Office Visit 05/20/2019 Ab Casillas S93.402D Sprain of 10:00a [facility] unspecified [place] ligament of left ankle, subs encntr Office Visit 05/19/2019 [facility] Internal Julianna Knight, M54.41 Lumbago with 10:40a Medicine - [facility] sciatica, right side Assessments Date Code Description Provider 10/02/2019 R05 Cough Lianet Gold MD 10/02/2019 J45.909 Unspecified asthma, uncomplicated Linaet Gold MD 09/08/2019 G40.909 Epilepsy, unspecified, not Henrik James M.D. intractable, without status epilepticus 09/08/2019 J45.909 Unspecified asthma, uncomplicated Henrik James M.D. 09/08/2019 R73.9 Hyperglycemia, unspecified Henrik James M.D. 09/08/2019 Z12.31 Encounter for screening mammogram for Henrik James M.D. malignant neoplasm of breast 09/08/2019 N76.0 Acute vaginitis Henrik James M.D. 09/08/2019 E66.01 Morbid (severe) obesity due to excess Henrik James M.D. calories 08/02/2019 G47.30 Sleep apnea, unspecified Esther Bhatt MD 07/10/2019 J45.998 Other asthma Eamon Diaz MD 07/10/2019 G47.30 Sleep apnea, unspecified Eamon Diaz MD 06/16/2019 L08.9 Local infection of the skin and Skylar Jarvis M.D. subcutaneous tissue, unspecified 06/16/2019 G40.909 Epilepsy, unspecified, not kSylar Jarvis M.D. intractable, without status epilepticus 06/16/2019 J45.909 Unspecified asthma, uncomplicated Skylar Jarvis M.D. 06/16/2019 E78.5 Hyperlipidemia, rupinderified Skylar Jarvis M.D. 06/16/2019 E03.9 Hypothyroidism, liliya Jarvis M.D. 06/16/2019 F17.210 Nicotine dependence, cigarettes, Skylar Jarvis M.D. uncomplicated 06/05/2019 S93.402D Sprain of unspecified ligament of Vinny Payan M.D. left ankle, subsequent enc 05/20/2019 S93.402D Sprain of unspecified ligament of [facility] Pay[facility] M.D. left ankle, subsequent enc 05/19/2019 M54.41 Lumbago with sciatica, right side Julianna Knight MD 05/13/2019 G40.909 Epilepsy, unspecified, not Julianna Knight MD intractable, without status epilepticus 05/13/2019 J45.909 Unspecified asthma, uncomplicated Julianna Knight MD 05/13/2019 Z12.31 Encounter for screening mammogram for Julianna Knight MD malignant neoplasm of breast 05/13/2019 N76.0 Acute vaginitis Julianna Knight MD Plan of Treatment 10/02/2019 - Lianet Gold, MDR05 CoughNew Medication:Benzonatate 100 mg - take 1 tab by mouth up to 3 times daily as needed for coughComments:This is likely a viral illnessStart new medication to help with the wbzdhY68.909 Unspecified asthma, uncomplicated Functional Status Description No Information Available Mental Status Description No Information Available Referrals Refer to Dr Reason for Referral Status Appt Date Anghel, Traian Ellen, MD Patient with past episodes of unexplained Sent syncope and collapse. 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 She wants to transfer her cardiac care from the local group. Resent Ref 08/18/19 Pt called office and stated she did not want to be seen there. [address] [place] [address] [address] [place] [address] [phone] Pain Clinic pt with long standing LBP with sciatica not responding to Sent 07/04/2019 conservative treatment, may benefit from injections [address] [place] [address] [phone]
== END 2019-10-29 04:58 | disposition home or self-care (01) ==
LOC: ED 03:48
DX: S46.012A Strain of muscle(s) and tendon(s) of the rotator cuff of left shoulder, initial encounter (principal); Y04.8XXA Assault by other bodily force, initial encounter; Y92.009 Unspecified place in unspecified non-institutional (private) residence as the place of occurrence of the external cause; E07.9 Disorder of thyroid, unspecified; E78.00 Pure hypercholesterolemia, unspecified; I10 Essential (primary) hypertension; J45.909 Unspecified asthma, uncomplicated; K21.9 Gastro-esophageal reflux disease without esophagitis; F43.10 Post-traumatic stress disorder, unspecified; F17.210 Nicotine dependence, cigarettes, uncomplicated; Z79.899 Other long term (current) drug therapy; Z88.0 Allergy status to penicillin; Z88.5 Allergy status to narcotic agent; Z88.8 Allergy status to other drugs, medicaments and biological substances
CPT/HCPCS: 99282

== ENCOUNTER 2020-01-19 13:50 | Emergency (ER) | payer OTHER ==
--- OUTSIDE RECORDS SUMMARY | 2020-01-19 13:56 | XMS REPORT | Continuity of Care Document ---
:1980 External Reference #:[id number] Author Name Kunal Saxena NP Address [address], [place] [address] Care Team Providers Name Role Phone Anitra Pearce MD - Gastroenterology Care Team Information Backup Operator [phone] Jane Mcdaniels MD - Neurology Care Team Information Backup Operator [phone] Bernard Melvin MD - Neurology Care Team Information Backup Operator [phone] Wilfred Curiel MD - Gastroenterology Care Team Information Backup Operator [phone] Nusrat Montes MD - Obstetrics & Care Team Information Backup Operator [phone] Gynecology Julianna Knight M.D. - Family Medicine Care Team Information Backup Operator Problems Active Problems Provider Date Generalized convulsive epilepsy Skylar Jravis M.D. Onset: 02/29/2012 Gastroenteritis Kitty Pena M.D. [...] Pack Years - 12 Smoking Status Reviewed: 12/26/19 Former Cigarette Smoker 1-5 Cigarettes Daily ETOH [...] Medications SIG Qnty Indications Ordering Date Provider Prednisone take 4 tab daily x 20tabs J45.901 Kunal Saxena NP 01/14/2020 10mg 2 days then 3 tab Tablets daily x 2 days, then 2 tab daily for 2 day, and 1 tab for 2 day. Azithromycin 2 tabs by mouth 6tabs R05 Kunal Saxena NP 01/14/2020 250mg every day x1 day, Tablets 1 tab by mouth every day x 4 days Meloxicam 1 -2 tablet by 30tabs M54.5 Kunal Saxena NP 12/26/2019 7.5mg mouth once daily Tablets as needed Baclofen take 1/2-1 tab 60tabs M54.5 Kunal Saxena NP 12/26/2019 10mg Tablets every 8 hours as needed for muscle spasm Prazosin HCL 1mg by mouth at 30caps F51.5 Lianet Gold, 12/18/2019 1mg bedtime as needed Capsules for nightmares Aspirin Ec Low Dose 1 by mouth every 30tabs Cesar Maria 06/05/2019 day Roly Zepeda 81mg Tablets Acetaminophen-Codein one by mouth every 28tabs M54.41 Julianna Knight MD e #4 6 hours as needed 300-60mg Tablets for pain Amitriptyline HCL 1 by mouth at 30tabs Lianet Gold, 03/13/2019 bedtime 50mg Tablets Nebulizer use as directed 1units J45.909 Julianna Knight MD 12/20/2018 Kit/Tubing/Mouthpiec for acute asthma e Kit Pantoprazole Sodium take one tablet by 90tabs K21.9 Lianet Gold, 07/04 mouth every MD 40mg Tablets DR morning on empty stomach Briefs Overnight for use 4 times 120units Julianna Knight MD 02/06/2017 Large daily and as Misc needed waist is 45-58 inches, fitted briefs. needs velcro tabs Ipratropium inhale contents of 90ml R06.02 Mariama 01/22/2017 [place]/Albuterol 1 vial via [facility] Torres Sulfate nebulizer three times a day as 0.5-2.5(3)mg/3ML needed for acute Solution asthma attack Levothyroxine Sodium 1 by mouth every 90tabs E03.9 Julianna Knight MD 2015 day 75mcg Tablets [facility] [employer] Under[facility] Use as Directed as 80units Vinny Briggs, 2015 Large Needed [facility]oly Misc Atorvastatin Calcium one tab by mouth 90tabs E78.89 Julianna Knight MD 2014 every night at 20mg Tablets bedtime Topiramate take one tablet by 180tabs Lianet Gold, 12/09/2014 100mg mouth twice a day Tablets Montelukast Sodium take one tablet by 90tabs Lianet Gold, 09/30/2014 mouth every day 10mg Tablets Advair Diskus install 1 puff 60units J45.20 Skylar Jarvis, 09/09/2014 twice a day M.D. 500-50mcg/Dose Aerosol Ventolin HFA 2 puffs by mouth 18gm Lianet Gold, 10/30/2013 four times a day 108(90Base) mcg/Act as needed Aerosol Microchamber use with inhalers 1units Julianna Knight MD 05/12/2013 Misc Portable Nebulizer use as directed Ajunparviz Knight MD 05/01/2013 Machine three times daily for asthma dx: asthma j45.909 Spiriva Respimat 2 inhalations once 12gm Julianna Knight MD daily 1.25mcg/Act Aerosol Nystatin apply to affected 30units Julianna Knight MD area(s) two times [id number]/GM Cream a day as needed Xyzal Allergy 24HR 1 by mouth every Unknown day 5mg Tablets Nasacort Allergy 2 puffs each nare Unknown 24HR every in the 55mcg/Act morning Aerosol Optichamber Julia For Use With Unknown Inhalers Misc Afluria Quadrivalent Inject as Directed Unknown 2018-20 Suspension Prevail Super Plus Use Up To 4 Times Unknown Underwear Large Daily And as Misc Needed Naproxen Take One Tablet By Unknown 500mg Mouth Twice A Day Tablets as Needed For Pain With Food History Medications Ketorolac Tromethamine 1 tab by mouth 20tabs Morena Blackburn, 2019 - every 6 hours M.D. 11/06/2019 10mg Tablets as needed for pain Benzonatate take 1 tab by 30caps R05 Lianet Gold, 10/02/2019 - 100mg mouth up to 3 MD 11/06/2019 Capsules times daily as needed for cough Medications Administered in Office Medication SIG Qnty Indications Ordering Provider Date Records Fee Henrik James, 11/06/2019 Injection Roly Records Fee Henrik James, 09/08/2019 Injection Roly Records Fee Julianna Knight MD 05/13/2019 Injection PPD Nurse Visit A 01/07/2018 Injection Immunizations CPT Code Status Date Vaccine Lot # [id number] Given 07/14/2019 Influ Virus Vaccine, Quadrivalent, Split Virus, [place] [id number] Given 06/07/2016 Pneumonia Vaccine [id number] Given 09/22/2015 Fluvirin Im 3Yrs And Older [id number] Given 08/04/2013 Flu Vaccine Split Virus Preservative Free For [id number] Indiv 3Yr Older 06329 Given 03/19/2011 Tdap - Tetanus/Diptheria/Acellular Pertussis [id number] Vital Signs Date Vital Result Comment 12/26/2019 10:15am Height 64 inches 5'4" Weight 266.38 lb Heart Rate 87 /min BP Systolic 118 mmHg BP Diastolic 82 mmHg Body Temperature 98.6 F O2 % BldC Oximetry 95 % BMI (Body Mass Index) 45.7 kg/m2 12/10/2019 1:48pm Height 64 inches 5'4" Weight 265.00 lb Heart Rate 64 /min BP Systolic 118 mmHg BP Diastolic 76 mmHg Body Temperature 98.2 F Pain Level 9 BMI (Body Mass Index) 45.5 kg/m2 Results Test Acquired Date Facility Test Result H/L Range Note CBC Auto 08/27/2019 [facility] White Blood 10.1 10^3/uL Normal 3.5-10.[address] [place] [address] [phone] Red Blood Count 4.60 10^6/uL Normal 3.70-4.87 [...] Blood Cells % 0.1 Comp Metabolic 08/27/2019 [facility] Sodium 141 mmol/L Normal 135-[address] [place] [address] [phone] Potassium 3.5 mmol/L Normal 3.5-5.0 Chloride 108 [...] Egfr 94.3 >60 1 Laboratory test 08/27/2019 [facility] Acetaminophen < 15 g/mL [address] [place] [address] [phone] Alcohol < 10 mg/dL Normal <10 Salicylate < 2.50 mg/dL <30 TSH (Thyroid Stim Horm) 7.00 mcIU/mL High 0.34-5.60 Urinalysis Profile 08/27/2019 [facility] Urine Color Yellow [address] [place] [address] [phone] Urine Appearance Clear Urine Specific Elmer 1.024 Normal 1.010-1.030 Urine pH 5.0 Normal [...] Cell Present Abnormal Absent Urine Drug 08/27/2019 [facility] Urine None Detected None Detect SCR ED & [address] A[place] [address] Screen [phone] Urine Barbiturates Screen None Detected None Detect Urine Benzodiazepine Screen None Detected None Detect Urine Cannabinoids Screen None Detected None Detect Urine Cocaine Screen None Detected None Detect Urine Opiates Screen None Detected None Detect Urine Phencyclidine Screen None Detected None Detect 3 Urine Culture And 08/27/2019 [facility] Urine Culture SEE RESULT [address] [place] [address] [phone] 1 Because ethnic data is not always [...] [address]: Hang Jara MD Acct: [id number] Unit: [id number] AGE: 39 Location: ED Re08/27/19 SEX: F Status: REG ER SPEC: [id number] SISI: 08/27/19-[address]: Cinthya SANTILLAN REQ: [id number] RECD: 08/27/19 STATUS:COMP OTHR DR: Hang Knight MD _ SOURCE: URINE SPDESC: ORDERED: Urine Culture Procedure Result Reported Site Urine Culture Final 08/28/19- 1751 ML No growth of clinically significant organisms * - Main Lab . END OF REPORT DEPARTMENT OF PATHOLOGY, [address] [place] [address] Darek Fry M.D. Director [facility] # [id number] Procedures Date Code Description Status 08/02/2019 61623 Sleep Study Unattended,HRT Rate,Oxygen Sat,Resp Completed Effort/Airflow 10/03/2018 18325205 Mammogram Completed 06/25/2014 81968269 Colonoscopy Completed 04/10/2014 88633056 Colonoscopy Completed 09/09/2013 62728857 Mammogram Completed Medical Devices Description No Information Available Encounters Type Date Location Provider Dx Diagnosis Office Visit 01/14/2020 [facility] Internal Kunal Saxena NP J45.901 Unspecified asthma 10:20a Medicine Brendan Dominguez with (acute) exacerbation R05 Cough M54.5 Low back pain Office Visit 12/26/2019 [facility] Internal Kunal Saxena NP M54.5 Low back pain 10:00a Medicine - Nieshaob Office Visit 12/10/2019 Ab Berg M75.42 Impingement 2:00p Orthopedics at [facility] syndrome of left Indian shoulder Office Visit 11/19/2019 Ab Saldivar M25.512 Pain in left 1:45p Orthopedics at [facility] shoulder Indian Office Visit 11/06/2019 [facility] Internal Lianet M54.5 Low back pain 11:00a Zaid Gold MD M25.512 Pain in left shoulder J45.909 Unspecified asthma, uncomplicated G40.909 Epilepsy, unsp, not intractable, without status epilepticus Office Visit 10/30/2019 11:15a [facility] Heather Saldivar M25.512 Pain in left at [facility] shoulder Office Visit 10/02/2019 11:20a [facility] Internal Lianet R05 Cough Zaid Gold MD J45.909 Unspecified asthma, uncomplicated Assessments Date Code Description Provider 01/14/2020 J45.901 Unspecified asthma with (acute) Kunal Odessa, OPERATIONS SCHEDULER exacerbation 01/14/2020 R05 Cough Kunal Odessa, OPERATIONS SCHEDULER 01/14/2020 M54.5 Low back pain Kunal Odessa, OPERATIONS SCHEDULER 01/05/2020 G40.909 Epilepsy, unspecified, not Kunal Odessa, OPERATIONS SCHEDULER intractable, without status epilepticus 01/05/2020 J45.909 Unspecified asthma, uncomplicated Kunal Odessa, OPERATIONS SCHEDULER 01/05/2020 R73.9 Hyperglycemia, unspecified Kunal Odessa, OPERATIONS SCHEDULER 01/05/2020 Z12.31 Encounter for screening mammogram for Kunal Odessa, OPERATIONS SCHEDULER malignant neoplasm of breast 12/26/2019 M54.5 Low back pain Kunal Odessa, OPERATIONS SCHEDULER 12/10/2019 M75.42 Impingement syndrome of left shoulder Morena Blackburn M.D. 11/19/2019 M25.512 Pain in left shoulder Heather Saldivar, RPA-C 11/19/2019 M25.512 Pain in left shoulder Morena Blackburn M.D. 11/06/2019 M54.5 Low back pain Lianet Gold MD 11/06/2019 G40.909 Epilepsy, unspecified, not Henrik James M.D. intractable, without status epilepticus 11/06/2019 M25.512 Pain in left shoulder Lianet Gold MD 11/06/2019 J45.909 Unspecified asthma, uncomplicated Lianet Gold MD 11/06/2019 J45.909 Unspecified asthma, uncomplicated Henrik James M.D. 11/06/2019 G40.909 Epilepsy, unspecified, not Lianet Gold MD intractable, without status epilepticus 11/06/2019 R73.9 Hyperglycemia, unspecified Henrik James M.D. 11/06/2019 Z12.31 Encounter for screening mammogram for Henrik James M.D. malignant neoplasm of breast 11/06/2019 N76.0 Acute vaginitis Henrik James M.D. 11/06/2019 E66.01 Morbid (severe) obesity due to excess Henrik James M.D. calories 10/30/2019 M25.512 Pain in left shoulder Heatherlindsey Saldivar RPA-Velma 10/02/2019 R05 Cough Lianet Gold MD 10/02/2019 J45.909 Unspecified asthma, uncomplicated Lianet Gold MD 09/08/2019 G40.909 Epilepsy, unspecified, not [...] G47.30 Sleep apnea, unspecified Esther Bhatt MD Plan of Treatment Future Appointment(s):03/25/2020 1:00 pm - Mandeep Patel M.D. at [facility]02/04/2020 11:30 am - Morena Blackburn M.D. at [facility] [place]01/14/2020 - Kunal Saxena, BELÉNJ45.901 Unspecified asthma with (acute) exacerbationNew Medication:Prednisone 10 mg - take 4 tab daily x 2 days then 3 tab daily x 2 days, then 2 tab daily for 2 day, and 1 tab for 2 day.Comments:Continue with all current breathing medications. Start the prednisone as directed. Take this with food. Stop the meloxicam while taking this. Complete the antibiotic as well.If your symptoms worsen at all go to the ER.R05 CoughNew Medication:Azithromycin 250 mg - 2 tabs by mouth every day x1 day, 1 tab by mouth every day x 4 daysM54.5 Low back pain Functional Status Description No Information Available Mental Status Description No Information Available Referrals Refer to Reason for Referral Status Appt Date Wendy Cameron MD Sent [address] [place] [address] [phone] Ortiz' office denied referral per Jacinto. Closed 12/10FP [address] [place] [address] [phone] Kvng Gamez NP Sent [address] [place] [place] [address] [place] [address] [phone] Loni Hill MD Patient with past episodes of unexplained Sent syncope and collapse. 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 She wants to transfer her cardiac care from the local group. Resent Ref 08/18/19 Pt called office and stated she did not want to be seen there. [address] [place] [address] [address] [place] [address] [phone]
--- OUTSIDE RECORDS SUMMARY | 2020-01-19 13:56 | XMS REPORT | Continuity of Care Document ---
:1980 External Reference #:[id number] Author Name Kunal Saxena NP (transmitted by agent of provider Marlys Hanson) Address [address], [place] [address] Care Team Providers Name Role Phone Anitra Pearce MD - Gastroenterology Care Team Information Social Work Msw [phone] Jane Mcdaniels MD - Neurology Care Team Information Social Work Msw Bernard Melvin MD - Neurology Care Team Information Social Work Msw [phone] Wilfred Curiel MD - Gastroenterology Care Team Information Social Work Msw [phone] Nusrat Montes MD - Obstetrics & Care Team Information Social Work Msw Gynecology Julianna Knight M.D. - Family Medicine Care Team Information Social Work Msw Problems Active Problems Provider Date Generalized convulsive [...] MD Onset: 04/02/2017 Gastroesophageal reflux disease Junior Jaqeuz M.D. Onset: 07/04/2017 Essential hypertension Junior Jaquez [...] Medications SIG Qnty Indications Ordering Date Provider Meloxicam 1 -2 tablet by 30tabs M54.5 Kunal Saxena NP 12/26/2019 7.5mg mouth once daily Tablets as needed Baclofen take 1/2-1 tab 30tabs M54.5 Kunal Saxena NP 12/26/2019 10mg Tablets [...] inhale contents of 90ml R06.02 Mariama 01/22/2017 [place]/Albuterol 1 vial via Cotton, Roly Sulfate nebulizer three times a day as 0.5-2.5(3)mg/3ML needed for acute Solution asthma attack Levothyroxine Sodium 1 by mouth every 90tabs E03.9 Julianna Knight MD 2015 day 75mcg Tablets [facility] W[facility] Underwear Use as Directed as 80units Vinny Briggs, 2015 Large Needed M.DJody Misc Atorvastatin Calcium one tab by mouth 90tabs E78.89 Julianna Knight MD 2014 every night at 20mg Tablets bedtime Topiramate take one tablet by 180tabs Lianet Gold, 12/09/2014 100mg mouth twice a day MD Tablets Montelukast Sodium take one tablet by 90tabs Lianet Gold, 09/30/2014 mouth every day MD 10mg Tablets Advair Diskus install 1 puff 60units J45.20 Skylar Jarvis, 09/09/2014 twice a day M.D. 500-50mcg/Dose Aerosol Ventolin HFA 2 puffs by mouth 18gm Lianet Gold, 10/30/2013 four times a day 108(90Base) mcg/Act as needed Aerosol Microchamber use with inhalers 1unparviz Knight MD 05/12/2013 Misc Portable Nebulizer use as directed 1units Julianna Knight MD 05/01/2013 Machine three times daily for asthma dx: asthma j45.909 Spiriva Respimat 2 inhalations once 12gm Julianna Knight MD daily 1.25mcg/Act Aerosol Nystatin apply to affected 30units Julianna Knight MD area(s) two times 226353Sfpg/GM Cream a day as needed Xyzal Allergy 24HR 1 by mouth every Unknown day 5mg Tablets Nasacort Allergy 2 puffs each nare Unknown 24HR every in the 55mcg/Act morning Aerosol Optichamber Julia For Use With Unknown Inhalers Misc Afluria Quadrivalent Inject as Directed Unknown 2019-20 Suspension Prevail Super Plus Use Up To 4 Times Unknown Underwear Large Daily And as Misc Needed Naproxen Take One Tablet By Unknown 500mg Mouth Twice A Day Tablets as Needed For Pain With Food History Medications Ketorolac 1 tab by mouth 20tabs Morena Blackburn, 10/30/2019 - Tromethamine every 6 hours M.D. 11/06/2019 10mg as needed for Tablets pain Benzonatate take 1 tab by 30caps R05 Lianet Gold, 10/02/2019 - 100mg mouth up to 3 MD 11/06/2019 Capsules times daily as needed for cough Breo Ellipta 1 by mouth 60units J45.998 Eamon Diaz MD 07/10/2019 - every day 12/27/2019 100-25mcg/Inh Aerosol Medications Administered in Office Medication SIG Qnty Indications Ordering Provider Date Records Fee Henrik James, 11/06/2019 Injection M.D. Records Fee Henrik James, 09/08/2019 Injection Roly Records Fee Julianna Knight MD 05/13/2019 Injection PPD Nurse Visit A 01/07/2018 Injection Immunizations CPT Code Status Date Vaccine Lot # [id number] Given 07/14/2019 Influ Virus Vaccine, Quadrivalent, Split Virus, [place] [id number] Given 06/07/2016 Pneumonia Vaccine [id number] Given 09/22/2015 Fluvirin Im 3Yrs And Older [id number] Given 08/04/2013 Flu Vaccine Split Virus Preservative Free For [id number] Indiv 3Yr Older [id number] Given 03/19/2011 Tdap - Tetanus/Diptheria/Acellular Pertussis [id number] Vital Signs Date Vital Result Comment 12/26/2019 [...] Result H/L Range Note CBC Auto 08/27/2019 [facility] White Blood 10.1 10^3/uL Normal 3.5-10.[address] [place] [address] [phone] Red Blood Count 4.60 10^6/uL Normal 3.70-4.87 [...] Blood Cells % 0.1 Comp Metabolic 08/27/2019 [facility] Sodium 141 mmol/L Normal 135-[address] [place] [address] [phone] Potassium 3.5 mmol/L Normal 3.5-5.0 Chloride 108 [...] Egfr 94.3 >60 1 Laboratory test 08/27/2019 [facility] Acetaminophen < 15 g/mL 2 finding [address] [place] [address] [phone] Alcohol < 10 mg/dL Normal <10 Salicylate < 2.50 mg/dL <30 TSH (Thyroid Stim Horm) 7.00 mcIU/mL High 0.34-5.60 Urinalysis Profile 08/27/2019 [facility] Urine Color Yellow [address] [place] [address] [phone] Urine Appearance Clear Urine Specific [place] 1.024 Normal 1.010-1.030 Urine pH 5.0 Normal [...] Cell Present Abnormal Absent Urine Drug 08/27/2019 [facility] Urine None Detected None Detect SCR ED & [address] [place] [address] Screen [phone] Urine Barbiturates Screen None Detected None Detect Urine Benzodiazepine Screen None Detected None Detect Urine Cannabinoids Screen None Detected None Detect Urine Cocaine Screen None Detected None Detect Urine Opiates Screen None Detected None Detect Urine Phencyclidine Screen None Detected None Detect 3 Urine Culture And 08/27/2019 [facility] Urine Culture SEE RESULT [address] [place], [place] [id number] [phone] Lipid Profile 07/11/2019 [facility] Triglycerides 238 mg/dL 5 (Trig/Chol/HDL) [address] [place], [place] [id number] [phone] Cholesterol 248 mg/dL 6 HDL Cholesterol 38.7 mg/dL 7 LDL Cholesterol 162 mg/dL 8 Laboratory 07/11/2019 [facility] TSH (Thyroid 4.26 Normal 0.34 -5.60 test finding [address] Stim Horm) mcIU/mL [place], [place] [address] [phone] T3 Free 3.30 pg/mL Normal 2.5-3.9 Free [...] [address]: Hang Jara MD Acct: [id number] Unit: [id number] AGE: 39 Location: ED Re08/27/19 SEX: F Status: REG ER SPEC: [id number] SISI: 08/27/[address] [facility] [address]: Cinthya SANTILLAN REQ: [id number] RECD: 08/27/19 STATUS:DEENA TRAVIS DR: Hang Knight MD _ SOURCE: URINE SPDESC: ORDERED: Urine Culture Procedure Result Reported Site Urine Culture Final 08/28/19- 1751 ML No growth of clinically significant organisms * ML - Main Lab . END OF REPORT DEPARTMENT OF PATHOLOGY, [address] [place] [address] Darek Fry M.D. Director [facility] # [id number] 5 Desirable: <150 Borderline High: 150-199 High: 200-499 Very High: >500 6 Desirable: <200 Borderline High: 200-239 High: >239 7 Low: <40 Desirable: 40-60 High: >60 8 Desirable: <100 Near Optimal: 100-129 Borderline High: 130-159 High: 160-189 Very High: >189 Procedures Date Code Description Status 08/02/2019 89078 Sleep Study Unattended,HRT Rate,Oxygen Sat,Resp Completed Effort/Airflow 10/03/2018 03717024 Mammogram Completed 06/25/2014 26837906 Colonoscopy Completed 04/10/2014 63857584 Colonoscopy Completed 09/09/2013 45973685 Mammogram Completed Medical Devices Description No Information Available Encounters Type Date Location Provider Dx Diagnosis Office Visit 12/26/2019 [facility] Internal Kunal Saxena NP M54.5 Low back pain 10:00a Medicine - Ccmob Office Visit 12/10/2019 [facility] Morena M75.42 Impingement 2:00p at Parul Blackburn M.D. syndrome of left shoulder Office Visit 11/19/2019 [facility] Heather Saldivar M25.512 Pain in left 1:45p at [place] [facility] shoulder Office Visit 11/06/2019 [facility] Internal Steve Omalley4.5 Low back pain 11:00a Medicine - Ccmjere CHAVEZ M25.512 Pain in left shoulder J45.909 Unspecified asthma, uncomplicated G40.909 Epilepsy, unsp, not intractable, without status epilepticus Office Visit 10/30/2019 11:15a [facility] Heather Saldivar, M25.512 Pain in left at [facility]- shoulder Office Visit 10/02/2019 11:20a [facility] Internal Lianet R05 Cough Medicine - Angelica Gold MD J45.909 Unspecified asthma, uncomplicated Office Visit 07/10/2019 10:45a Pulmonology And Eamon Diaz, J45.998 Other asthma [facility] G47.30 Sleep apnea, unspecified Assessments Date Code Description Provider 12/26/2019 M54.5 Low back pain Kunal Saxena NP 12/10/2019 M75.42 Impingement syndrome of left shoulder Morena Blackburn M.D. 11/19/2019 M25.512 Pain in left shoulder Heather Saldivar, [facility]- 11/19/2019 M25.512 Pain in left shoulder Morena Blackburn M.D. 11/06/2019 M54.5 Low back pain Lianet Gold MD 11/06/2019 G40.909 Epilepsy, unspecified, not Henrik James M.D. intractable, without status epilepticus 11/06/2019 M25.512 Pain in left shoulder Lianet Gold MD 11/06/2019 J45.909 Unspecified asthma, uncomplicated Henrik James M.D. 11/06/2019 J45.909 Unspecified asthma, uncomplicated Lianet Gold MD 11/06/2019 G40.909 Epilepsy, unspecified, not Lianet Gold MD intractable, without status epilepticus 11/06/2019 R73.9 Hyperglycemia, unspecified Henrik James M.D. 11/06/2019 Z12.31 Encounter for screening mammogram for Henrik James M.D. malignant neoplasm of breast 11/06/2019 N76.0 Acute vaginitis Henrik James M.D. 11/06/2019 E66.01 Morbid (severe) obesity due to excess Henrik James M.D. calories 10/30/2019 M25.512 Pain in left shoulder Heather Saldivar RPA-[facility] 10/02/2019 R05 Cough Lianet Gold [...] G47.30 Sleep apnea, unspecified Eamon Diaz MD Plan of Treatment Future Appointment(s):03/25/2020 1:00 pm - Mandeep Patel M.D. at [facility]02/04/2020 11:30 am - Morena Blackburn M.D. at [facility] at Wdwimt6512/26/2019 - Kunal Saxena, BELÉNM54.5 Low back painNew Medication:Meloxicam 7.5 mg - 1 -2 tablet by mouth once daily as neededBaclofen 10 mg - take 1/2-1 tab every 8 hours as needed for muscle spasmNew Therapy: Physical TherapyComments:We talked about adding a different muscle relaxant and an anti inflammatory and connecting you to a furnace mason to help with your back pain. You have stated that you have a referral to , in themean time, I would like you to use the medication and see the furnace mason. This doctors name is .Referral:Wendy Cameron MD, Physical Medicine/Rehab Functional Status Description No Information Available Mental Status Description No Information Available Referrals Refer to Reason for Referral Status Appt Date Wendy Camerno MD Created [address] [place] [address] [phone] Ortiz' office denied referral per Jacinto. Closed 12/10FP [address] [place] [address] [phone] Kvng Gamez NP Sent [address] [facility] [place] [address] [place] [address] [phone] Loni Hill MD Patient with past episodes of unexplained Sent syncope and collapse. 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 She wants to transfer her cardiac care from the local group. Resent Ref 08/18/19 Pt called office and stated she did not want to be seen there. [address] [place] [address] [phone]
--- OUTSIDE RECORDS SUMMARY | 2020-01-19 13:57 | XMS REPORT | Continuity of Care Document ---
:1980 External Reference #:[id number] Author Name Morena Blackburn M.D. (transmitted by agent of provider Tommy King) Address [address] [place] [address] Care Team Providers Name Role Phone Anitra Pearce MD - Gastroenterology Care Team Information Waste Hand [phone] Jane Mcdaniels MD - Neurology Care Team Information Waste Hand [phone] Bernard Melvin MD - Neurology Care Team Information Waste Hand [phone] Wilfred Curiel MD - Gastroenterology Care Team Information Waste Hand Nusrat Montes MD - Obstetrics & Care Team Information Waste Hand [phone] Gynecology Julianna Knight M.D. - Family Medicine Care Team Information Waste Hand Problems Active Problems Provider Date Generalized convulsive [...] Pack Years - 12 Smoking Status Reviewed: 12/10/19 Former Cigarette Smoker 1-5 Cigarettes Daily ETOH [...] Medications SIG Qnty Indications Ordering Date Provider Breo Ellipta 1 by mouth every 60units J45.998 Eamon Diaz MD 07/10/2019 day 100-25mcg/Inh Aerosol Aspirin Ec Low Dose 1 by mouth every 30tabs Cesar Maria 06/05/2019 day Roly Zepeda 81mg Tablets DR Acetaminophen-Codein one by mouth every 28tabs M54.41 Julianna Knight MD e #4 6 hours as needed 300-60mg Tablets for pain Amitriptyline HCL 1 by mouth at 30tabs Julianna Knight MD 03/13/2019 bedtime 50mg Tablets Nebulizer use as directed 1units J45.909 Julianna Knight MD 12/20/2018 Kit/Tubing/Mouthpiec for acute asthma e Kit Pantoprazole Sodium take one tablet by 90tabs K21.9 Lianet Gold, 07/04 mouth every 40mg Tablets DR morning on empty stomach Briefs Overnight for use 4 times 120units Julianna Knight MD 02/06/2017 Large daily and as Misc needed waist is 45-58 inches, fitted briefs. needs velcro tabs Ipratropium inhale contents of 90ml R06.02 Mariama 01/22/2017 [place]/Albuterol 1 vial via Roly Torres Sulfate nebulizer [...] as needed Aerosol Microchamber use with inhalers 1herrera Knight MD 05/12/2013 Misc Portable Nebulizer use as directed merrill Knight MD 05/01/2013 Machine three times daily for asthma dx: asthma j45.909 Spiriva Respimat 2 inhalations once 12gm Julianna Knight MD daily 1.25mcg/Act Aerosol Nystatin apply to affected 30units Julianna Knight MD area(s) two times 349750Bxxh/GM Cream a day as needed Xyzal Allergy [...] Ketorolac 1 tab by mouth 20tabs Morena 10/30/2019 - Tromethamine every 6 hours as Roly Blackburn 11/06/2019 10mg needed for pain Tablets Benzonatate take 1 tab by 30caps R05 Lianet Gold, 10/02/2019 - 100mg mouth up to 3 MD 11/06/2019 Capsules times daily as needed for cough Nicorette as needed for 48units F17.210 Skylar Jarvis, 06/16/2019 - 2mg cravings not to M.D. 11/06/2019 Lozenges exceed 5 a day Mupirocin apply a thin 22gm L08.9 Skylar Jarvis, 06/16/2019 - 2% Ointment layer on the M.D. 11/06/2019 skin of affected area twice a day for 5 days Medications Administered in Office Medication SIG Qnty Indications Ordering Provider Date Records Fee Henrik James, 11/06/2019 Injection M.D. Records Fee Henrik James, 09/08/2019 Injection M.D. Records Fee Julianna Knight MD 05/13/2019 Injection PPD Nurse Visit A 01/07/2018 Injection Immunizations CPT Code Status Date Vaccine Lot # [id number] Given 07/14/2019 Influ Virus Vaccine, Quadrivalent, Split Virus, [place] [address] Given 06/07/2016 Pneumonia Vaccine [id number] Given 09/22/2015 Fluvirin Im 3Yrs And Older 19737 Given 08/04/2013 Flu Vaccine Split Virus Preservative Free For [id number] Indiv 3Yr Older 84525 Given 03/19/2011 Tdap - Tetanus/Diptheria/Acellular Pertussis [id number] Vital Signs Date Vital Result Comment 12/10/2019 1:48pm Height 64 inches 5'4" Weight 265.00 lb Heart Rate 64 /min BP Systolic 118 mmHg BP Diastolic 76 mmHg Body Temperature 98.2 F Pain Level 9 BMI (Body Mass Index) 45.5 kg/m2 11/19/2019 2:12pm Height 64 inches 5'4" Weight 265.00 lb Heart Rate 72 /min BP Systolic 126 mmHg BP Diastolic 78 mmHg Respiratory Rate 12 /min Body Temperature 97.6 F Pain Level 9 BMI (Body Mass Index) 45.5 kg/m2 Results Test Acquired Date Facility Test Result H/L Range Note CBC Auto 08/27/2019 [facility] White Blood 10.1 10^3/uL Normal 3.5-10.[address] [place], [place] [id number] [phone] Red Blood Count 4.60 10^6/uL Normal 3.70-4.87 [...] Blood Cells % 0.1 Comp Metabolic 08/27/2019 [facility] Sodium 141 mmol/L Normal 135-145 Panel [address] [place] [address] [phone] Potassium 3.5 mmol/L Normal 3.5-5.0 Chloride 108 [...] Egfr 94.3 >60 1 Laboratory test 08/27/2019 [facility] Acetaminophen < 15 g/mL 2 finding [address] [place] [address] [phone] Alcohol < 10 mg/dL Normal <10 Salicylate < 2.50 mg/dL <30 TSH (Thyroid Stim Horm) 7.00 mcIU/mL High 0.34-5.60 Urinalysis Profile 08/27/2019 [facility] Urine Color Yellow [address] [place] [address] [phone] Urine Appearance Clear Urine Specific [place] 1.024 Normal 1.010-1.030 Urine pH 5.0 Normal [...] Cell Present Abnormal Absent Urine Drug 08/27/2019 [facility] Urine None Detected None Detect SCR ED & [address] Amphetamine [place] [address] Screen [phone] Urine Barbiturates Screen None Detected None Detect Urine Benzodiazepine Screen None Detected None Detect Urine Cannabinoids Screen None Detected None Detect Urine Cocaine Screen None Detected None Detect Urine Opiates Screen None Detected None Detect Urine Phencyclidine Screen None Detected None Detect 3 Urine Culture And 08/27/2019 [facility] Urine Culture SEE RESULT [address] [place], [place] [address] [phone] Lipid Profile 07/11/2019 [facility] Triglycerides 238 mg/dL 5 (Trig/Chol/HDL) [address] [place], [place] [address] [phone] Cholesterol 248 mg/dL 6 HDL Cholesterol 38.7 mg/dL 7 LDL Cholesterol 162 mg/dL 8 Laboratory 07/11/2019 [facility] TSH (Thyroid 4.26 Normal 0.34 -5.60 test finding [address] Stim Horm) mcIU/mL [place], [place] [address] [phone] T3 Free 3.30 pg/mL Normal 2.5-3.9 Free [...] [address]: Hang Jara MD Acct: [id number] Unit: [id number] AGE: 39 Location: ED Re08/27/19 SEX: F Status: REG ER SPEC: [id number] SISI: 08/27/19-[address] [facility] [address]: Cinthya SANTILLAN REQ: [id number] RECD: 08/27/19 STATUS:DEENA TRAVIS DR: Hang Knight MD _ SOURCE: URINE SPDESC: ORDERED: Urine Culture Procedure Result Reported Site Urine Culture Final 08/28/19- 1751 ML No growth of clinically significant organisms * ML - Main Lab . END OF REPORT DEPARTMENT OF PATHOLOGY, [address] [place] [address] Darek Fry M.D. Director [facility] # [id number] 5 Desirable: <150 Borderline High: 150-199 High: 200-499 Very High: >500 6 Desirable: <200 Borderline High: 200-239 High: >239 7 Low: <40 Desirable: 40-60 High: >60 8 Desirable: <100 Near Optimal: 100-129 Borderline High: 130-159 High: 160-189 Very High: >189 Procedures Date Code Description Status 08/02/2019 25833 Sleep Study Unattended,HRT Rate,Oxygen Sat,Resp Completed Effort/Airflow 10/03/2018 54983698 Mammogram Completed 06/25/2014 47508957 Colonoscopy Completed 04/10/2014 60296001 Colonoscopy Completed 09/09/2013 95670513 Mammogram Completed Medical Devices Description No Information Available Encounters Type Date Location Provider Dx Diagnosis Office Visit 11/19/2019 [facility] Heather Saldivar M25.512 Pain in left 1:45p at [facility] shoulder Office Visit 11/06/2019 [facility] Lianet Gold, M54.5 Low back pain 11:00a Medicine - Ccmob M25.512 Pain in left shoulder J45.909 Unspecified asthma, uncomplicated G40.909 Epilepsy, unsp, not intractable, without status epilepticus Office Visit 10/30/2019 11:[facility] M25.512 Pain in left at [place] [facility] shoulder Office Visit 10/02/2019 11:20a [facility] Internal Lianet R05 Cough Medicine - Angelica Gold MD J45.909 Unspecified asthma, uncomplicated Office Visit 07/10/2019 10:45a Pulmonology And Eamon Diaz, J45.998 Other asthma [facility] G47.30 Sleep apnea, unspecified Office Visit 06/16/2019 10:10a [facility] Internal Skylar L08.9 Local infection of Medicine - Roly Jarvis the skin and Ccmob subcutaneous tissue, unsp G40.909 Epilepsy, unsp, not intractable, without status epilepticus J45.909 Unspecified asthma, uncomplicated E78.5 Hyperlipidemia, unspecified E03.9 Hypothyroidism, unspecified F17.210 Nicotine dependence, cigarettes, uncomplicated Assessments Date Code Description Provider 12/10/2019 M75.42 Impingement syndrome of left shoulder Morena Blackburn M.D. 11/19/2019 M25.512 Pain in left shoulder Heather Saldivar, [facility] 11/19/2019 M25.512 Pain in left shoulder Morena [...] E66.01 Morbid (severe) obesity due to excess Qutata S. Maghaydah, M.D. calories 10/30/2019 M25.512 Pain in left shoulder Heather Hesslencho, RPA-C 10/02/2019 R05 Cough Lianet Gold MD 10/02/2019 [...] tissue, unspecified 06/16/2019 G40.909 Epilepsy, unspecified, not Skylar Jarvis M.D. intractable, without status epilepticus 06/16/2019 J45.909 Unspecified asthma, uncomplicated Skylar Jarvis M.D. 06/16/2019 E78.5 Hyperlipidemia, unspecified Skylar Jarvis M.D. 06/16/2019 E03.9 Hypothyroidism, unspecified Skylar Jarvis M.D. 06/16/2019 F17.210 Nicotine dependence, cigarettes, Skylar Jarvis M.D. uncomplicated Plan of Treatment Future Appointment(s):02/04/2020 11:30 am - Morena Blackburn M.D. at [facility] at Xypqxt6912/10/2019 - Morena Blackburn M.D.M75.42 Impingement syndrome of left shoulderNew Therapy:Physical TherapyFollow up:Follow up: 8 weeks Functional Status Description No Information Available Mental Status Description No Information Available Referrals Refer to Dr Reason for Referral Status Appt Date Kunal Lugo DO Dr. Ortiz' office denied referral per Jacinto. Closed 12/10FP [address] [place] [address] [phone] Kvng Gamez NP Sent [address] [facility] [place] [address] [place] [address] [phone] Loni Hill MD Patient with past episodes of unexplained Sent syncope and collapse. 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 She wants to transfer her cardiac care from the local group. Resent Ref 08/18/19 Pt called office and stated she did not want to be seen there. [facility] [address] [place] [id number] [phone]
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
[2020-01-19 14:55] LABS: ABS Basophils 0.1 10^3/ul (0-0.2); ABS Eosinophils 0.2 10^3/ul (0-0.6); ABS Lymphocytes 1.8 10^3/ul (1.0-4.8); ABS Monocytes 0.5 10^3/ul (0-0.8); ABS Neutrophils 7.6 10^3/ul (1.5-7.7); Eosinophil % 2.1 %; Hematocrit 36 % (35-47); Hemoglobin 12.4 g/dL (12.0-16.0); Lymphocyte % 17.5 %; Mean Corpuscular HGB Conc 34 g/dL (31-36); Mean Corpuscular Hemoglobin 29 pg (27-31); Mean Corpuscular Volume 83 fL (80-97); Platelet Count 260 10^3/uL (150-450); Red Blood Count 4.35 10^6 /uL (3.70-4.87); Red Cell Distribution Width 15 % (10-15); White Blood Count 10.2 10^3/uL (3.5-10.8)
[2020-01-19 14:58] LABS: Influenza A Molecular Negative (Negative); Influenza B Molecular Negative (Negative)
[2020-01-19 15:13] LABS: Albumin 4.2 g/dL (3.2-5.2); Albumin/Globulin Ratio 1.2 (1-3); BUN/Creatinine Ratio 19.5 (8-20); C Reactive Protein 21.52 mg/L (<8.01); Calcium 9.6 mg/dL (8.6-10.3); EGFR African American 86.8 (>60); EGFR Non-African American 71.8 (>60); Globulin 3.4 g/dL (2-4); Potassium 3.6 mmol/L (3.5-5.0); Total Bilirubin 0.3 mg/dL (0.2-1.0); Total Protein 7.6 g/dL (6.4-8.9)
[2020-01-19 16:08] VITALS: BP 116/87
== END 2020-01-19 16:08 | disposition home or self-care (01) ==
LOC: ED 13:50
DX: J06.9 Acute upper respiratory infection, unspecified (principal); R05 Cough; R50.9 Fever, unspecified; Z88.0 Allergy status to penicillin; Z79.890 Hormone replacement therapy; Z79.899 Other long term (current) drug therapy; E03.9 Hypothyroidism, unspecified; E78.00 Pure hypercholesterolemia, unspecified; I10 Essential (primary) hypertension; Z86.79 Personal history of other diseases of the circulatory system; Z87.442 Personal history of urinary calculi; K21.9 Gastro-esophageal reflux disease without esophagitis; Z20.828 Contact with and (suspected) exposure to other viral communicable diseases
CPT/HCPCS: 36415; 71045; 80053; 85025; 86140; 87635; 99282

== ENCOUNTER 2020-02-14 08:34 | Emergency (ER) | payer OTHER ==
[2020-02-14] MEDS ORDERED: GuaiFENesin DM 100 mg/10 mg in 5 ML UDC PO ONE (08:56)
[2020-02-14] MEDS ORDERED: Acetaminophen TAB* 325 MG PO ONE (08:56)
--- OUTSIDE RECORDS SUMMARY | 2020-02-14 09:05 | XMS REPORT | Continuity of Care Document ---
:1980 External Reference #:[id number] Author Name Morena Blackburn M.D. (transmitted by agent of provider Latisha Loving) Address [address] [place] [address] Care Team Providers Name Role Phone Anitra Pearce MD - Gastroenterology Care Team Information Sliver Former Jane Mcdaniels MD - Neurology Care Team Information Sliver Former [phone] Bernard Melvin MD - Neurology Care Team Information Sliver Former [phone] Wilfred Curiel MD - Gastroenterology Care Team Information Sliver Former Nusrat Montes MD - Obstetrics & Care Team Information Sliver Former [phone] Gynecology Julianna Knight M.D. - Family Medicine Care Team Information Sliver Former Problems Active Problems Provider Date Generalized convulsive [...] Qnty Indications Ordering Date Provider Benzonatate take one or two 30caps Kunal Saxena NP 01/22/2020 100mg capsules every 8 Capsules hours as needed for cough. Meloxicam Take 1-2 Tablet By 30tabs M54.5 Kunal Saxena NP 12/26/2019 7.5mg Mouth Once Daily Tablets as Needed Baclofen take 1/2-1 tab 60tabs M54.5 Kunal Saxena NP 12/26/2019 10mg Tablets every 8 hours as needed for muscle spasm Prazosin HCL 1mg by mouth at 30caps F51.5 Kunal Saxena NP 12/18/2019 1mg bedtime as needed Capsules for nightmares Aspirin Ec Low Dose 1 by mouth every 30tabs Cesar Maria 06/05/2019 day Roly Zepeda 81mg Tablets Acetaminophen-Codein one by mouth every 28tabs M54.41 Julianna Knight MD e #4 6 hours as needed 300-60mg Tablets for pain Amitriptyline HCL 1 by mouth at 30tabs Lianet Gold, 03/13/2019 bedtime MD 50mg Tablets Nebulizer use as directed 1units [...] inhale contents of 90ml R06.02 Mariama 01/22/2017 [place]/Albuterol 1 vial via Roly Torres Sulfate nebulizer three times a day as 0.5-2.5(3)mg/3ML needed for acute Solution asthma attack Levothyroxine Sodium 1 by mouth every 90tabs E03.9 Julianna Knight MD 2015 day 75mcg Tablets [facility] Under[facility] Use as Directed as 80units Vinny Briggs, 2015 Large Needed M.Crow Misc Atorvastatin Calcium one tab by mouth [...] use with inhalers 1unparviz Knight MD 05/12/2013 [facility] [place] Portable Nebulizer use as directed 1unparviz Knight MD 05/01/2013 Machine three times daily for asthma dx: asthma j45.909 Naproxen Take One Tablet By Unknown 500mg Mouth Twice A Day Tablets as Needed For Pain With Food Prevail Super Plus Use Up To 4 Times Unknown Underwear Large Daily And as Misc Needed Afluria Quadrivalent Inject as Directed Unknown 2019-20 Suspension Optichamber Julia For Use With Unknown Inhalers [facility] [place] Nasacort Allergy 2 puffs each nare Unknown 24HR every in the 55mcg/Act morning Aerosol Xyzal Allergy 24HR 1 by mouth every Unknown day 5mg Tablets Nystatin apply to affected 30units Julianna Knight MD area(s) two times [id number]/GM Cream a day as needed Spiriva Respimat 2 inhalations once 12gm Julianna Knight MD daily 1.25mcg/Act Aerosol History Medications Levofloxacin one tablet 5tabs Kunal Saxena NP 01/20/2020 - 750mg daily for 5 01/24/2020 Tablets days. Prednisone take 4 tab 20tabs J45.901 Kunal Saxena NP 01/14/2020 - 10mg Tablets daily x 2 days 01/20/2020 then 3 tab daily x 2 days, then 2 tab daily for 2 day, and 1 tab for 2 day. Azithromycin 2 tabs by 6tabs R05 Kunal Saxena NP 01/14/2020 - 250mg mouth every 01/20/2020 Tablets day x1 day, 1 tab by mouth every day x 4 days Ketorolac 1 tab by mouth 20tabs Morena Meridabere, 10/30/2019 - Tromethamine every 6 hours M.D. [...] CPT Code Status Date Vaccine Lot # [id number] Given 07/14/2019 Influ Virus Vaccine, Quadrivalent, Split Virus, [place] [id number] Given 06/07/2016 Pneumonia Vaccine [id number] Given 09/22/2015 Fluvirin Im 3Yrs And Older [id number] Given 08/04/2013 Flu Vaccine Split Virus Preservative Free For [id number] Indiv 3Yr Older 00237 Given 03/19/2011 Tdap - Tetanus/Diptheria/Acellular Pertussis [id number] Vital Signs Date Vital Result Comment 12/26/2019 [...] Date Facility Test Result H/L Range Note Influenza A & B 01/19/2020 [facility] Flu AB (SEE NOTE) [address] Disclaimer [place] Ter[place] [address] [phone] Influenza A Molecular Negative Negative Influenza B Molecular Negative Negative 2 CBC Auto 01/19/2020 [facility] White Blood 10.2 10^3/uL Normal 3.5-10.[address] [place] [address] [phone] Red Blood Count 4.35 10^6/uL Normal 3.70-4.87 Hemoglobin 12.4 g/dL Normal 12.0-16.0 Hematocrit 36 % Normal 35-47 Mean Corpuscular Volume 83 fL Normal 80-97 Mean Corpuscular Hemoglobin 29 pg Normal 27-31 Mean Corpuscular HGB Conc 34 g/dL Normal 31-36 Red Cell Distribution Width 15 % Normal 10-15 Platelet Count 260 10^3/uL Normal 150-450 Mean Platelet Volume 8.0 fL Normal 7.4-10.4 Abs Neutrophils 7.6 10^3/uL Normal 1.5-7.7 Abs Lymphocytes 1.8 10^3/uL Normal 1.0-4.8 Abs Monocytes 0.5 10^3/uL Normal 0-0.8 Abs Eosinophils 0.2 10^3/uL Normal 0-0.6 Abs Basophils 0.1 10^3/uL Normal 0-0.2 Abs Nucleated RBC 0.0 10^3/uL Granulocyte % 74.6 % Lymphocyte % 17.5 % Monocyte % 5.0 % Eosinophil % 2.1 % Basophil % 0.8 % Nucleated Red Blood Cells % 0.0 Comp Metabolic 01/19/2020 [facility] Sodium 139 mmol/L Normal 135-[address] [place] [address] [phone] Potassium 3.6 mmol/L Normal 3.5-5.0 Chloride 107 mmol/L Normal 101-111 Co2 Carbon Dioxide 25 mmol/L Normal 22-32 Anion Gap 7 mmol/L Normal 2-11 Glucose 97 mg/dL Normal 70-100 Blood Urea Nitrogen 17 mg/dL Normal 6-24 Creatinine 0.87 mg/dL Normal 0.51-0.95 BUN/Creatinine Ratio 19.5 Normal 8-20 Calcium 9.6 mg/dL Normal 8.6-10.3 Total Protein 7.6 g/dL Normal 6.4-8.9 Albumin 4.2 g/dL Normal 3.2-5.2 Globulin 3.4 g/dL Normal 2-4 Albumin/Globulin Ratio 1.2 Normal 1-3 Total Bilirubin 0.30 mg/dL Normal 0.2-1.0 Alkaline Phosphatase 75 U/L Normal 34-104 Alt 17 U/L Normal 7-52 Ast 17 U/L Normal 13-39 Egfr Non- 71.8 >60 Egfr 86.8 >60 3 Laboratory test 01/19/2020 [facility] C Reactive 21.52 mg/L High <8.[address] [place] [address] [phone] Covid19, PCR Undetected Undetected 4 CBC Auto 08/27/2019 [facility] White Blood 10.1 10^3/uL Normal 3.5-10.[address] [place] [address] [phone] Red Blood Count 4.60 10^6/uL Normal 3.70-4.87 [...] Blood Cells % 0.1 Comp Metabolic 08/27/2019 [facility] Sodium 141 mmol/L Normal 135-[address] [place] [address] [phone] Potassium 3.5 mmol/L Normal 3.5-5.0 Chloride 108 [...] Egfr Non- 77.9 >60 Egfr 94.3 >60 5 Laboratory test 08/27/2019 [facility] Acetaminophen < 15 g/mL [address] [place] [address] [phone] Alcohol < 10 mg/dL Normal <10 Salicylate < 2.50 mg/dL <30 TSH (Thyroid Stim Horm) 7.00 mcIU/mL High 0.34-5.60 Urinalysis Profile 08/27/2019 [facility] Urine Color Yellow [address] [place] [address] [phone] Urine Appearance Clear Urine Specific Rochelle 1.024 Normal 1.010-1.030 Urine pH 5.0 Normal [...] Cell Present Abnormal Absent Urine Drug 08/27/2019 [facility] Urine None Detected None Detect SCR ED & [address] A[place] [address] Screen [phone] Urine Barbiturates Screen None Detected None Detect Urine Benzodiazepine Screen None Detected None Detect Urine Cannabinoids Screen None Detected None Detect Urine Cocaine Screen None Detected None Detect Urine Opiates Screen None Detected None Detect Urine Phencyclidine Screen None Detected None Detect 7 Urine Culture And 08/27/2019 [facility] Urine Culture SEE RESULT [address] [place] [address] [phone] 1 Suboptimal collection technique may reduce sensitivity of test. Refer to the [employer]ed Test Catalog for collection information: [email or web address].testcatalog.[email or web address] As with all diagnostic procedures, the laboratory results obtained should be used in conjunction with other clinical information available to the physician, including confirmation by another method, as applicable. 2 Gluing Machine Adjuster: [id number] 3 Because ethnic data is not always [...] 5 Kidney failure <15 (or dialysis) 4 SARS-CoV-2 RNA is not detected. ADDITIONAL INFORMATION Testing was performed using the chasity SARS-CoV-2 assay ([employer] on the chasity 6800 System. Fact sheets for this Emergency Use Authorization (EUA) assay can be found at the following links: For Healthcare Providers: https://www.fda.gov/media/208479/download For Patients: https://www.fda.gov/media/321300/download Test Performed by: [facility] [address] [place] [address] Supervisor [employer]: Humberto Braun M.D. Ph.D.; CLIA# [id number] 5 Because ethnic data is not always readily [...] 15-29 5 Kidney failure <15 (or dialysis) 6 Therapeutic concentration: <50 ug/mL Toxic concentration: >120 ug/mL 7 The urine specimen was tested at the listed cutoffs: Drug class test level (ng/mL) Amphetamines 500 Barbiturates 200 Benzodiazepine metabolites 200 Cocaine metabolites 150 Cannabinoids 50 Opiates 300 Pcp 25 Specimen was received without chain of custody. Results should be used for medical purposes only. 8 SEE RESULT BELOW Name: BOB MORALES : [address]: Hang Jara MD Acct: [id number] Unit: [id number] AGE: 39 Location: ED Re08/27/19 SEX: F Status: REG ER SPEC: [id number] SISI: 08/27/19-16[address] [facility] [address]: Cinthya SANTILLAN REQ: [id number] RECD: 08/27/19 STATUS:COMP [facility] DR: Hang Knight MD _ SOURCE: URINE SPDESC: ORDERED: Urine Culture Procedure Result Reported Site Urine Culture Final 08/28/19- 1751 ML No growth of clinically significant organisms * ML - Main Lab . END OF REPORT DEPARTMENT OF PATHOLOGY, [address] [place] [address] Darek Fry M.D. Director [facility] # [id number] Procedures Date Code Description Status 08/02/2019 16598 Sleep Study Unattended,HRT Rate,Oxygen Sat,Resp Completed Effort/Airflow 10/03/2018 78170293 Mammogram Completed 06/25/2014 42071101 Colonoscopy Completed 04/10/2014 80176703 Colonoscopy Completed 09/09/2013 [id number] Mammogram Completed Medical Devices Description No Information Available Encounters Type Date Location Provider Dx Diagnosis Office Visit 01/14/2020 Rodolfo Saxena NP J45.901 Unspecified asthma 10:20a Medicine - [facility] with (acute) exacerbation R05 Cough M54.5 Low back pain Office Visit 12/26/2019 Rodolfo Saxena NP M54.5 Low back pain 10:00a Medicine - [facility] Office Visit 12/10/2019 [place] [facility] Odom[facility]na M75.42 Impingement 2:00p Orthopedics dianelys Blackburn M.D. syndrome of left [place] shoulder Office Visit 11/19/2019 Ab Saldivar, M25.512 Pain in left 1:45p Orthopedics at [facility] shoulder [place] Office Visit 11/06/2019 [facility] Internal Lianet M54.5 Low back pain 11:00a Medicine - Angelica Gold MD M25.512 Pain in left shoulder J45.909 Unspecified asthma, uncomplicated G40.909 Epilepsy, unsp, not intractable, without status epilepticus Office Visit 10/30/2019 11:15a [facility] Heather Saldivar, M25.512 Pain in left at [facility] shoulder Office Visit 10/02/2019 11:20a [facility] Internal Lianet R05 Cough Medicine - Angelica Gold MD J45.909 Unspecified asthma, uncomplicated Assessments Date Code Description Provider 01/14/2020 J45.901 Unspecified asthma with (acute) Kunal Odessa, EMERGENCY ROOM SPECIALIST exacerbation 01/14/2020 R05 Cough Kunal Odessa, EMERGENCY ROOM SPECIALIST 01/14/2020 M54.5 Low back pain Kunal Odessa, EMERGENCY ROOM SPECIALIST 01/05/2020 G40.909 Epilepsy, unspecified, not Kunal Odessa, EMERGENCY ROOM SPECIALIST intractable, without status epilepticus 01/05/2020 J45.909 Unspecified asthma, uncomplicated Kunal Odessa, EMERGENCY ROOM SPECIALIST 01/05/2020 R73.9 Hyperglycemia, unspecified Kunal Odessa, EMERGENCY ROOM SPECIALIST 01/05/2020 Z12.31 Encounter for screening mammogram for Kunal Odessa, EMERGENCY ROOM SPECIALIST malignant neoplasm of breast 12/26/2019 M54.5 Low back pain Kunal Odessa, EMERGENCY ROOM SPECIALIST 12/10/2019 M75.42 Impingement syndrome of left shoulder Morena Blackburn M.D. 11/19/2019 M25.512 Pain in left shoulder Heather Saldivar, [facility] 11/19/2019 M25.512 Pain in left shoulder Morena [...] 10/30/2019 M25.512 Pain in left shoulder Heather Saldivar, RPA-C 10/02/2019 R05 Cough Lianet Gold MD [...] 1:00 pm - Mandeep Patel M.D. at [facility] Functional Status Description No Information Available Mental Status Description No Information Available Referrals Refer to Reason for Referral Status Appt Date Wendy Cameron MD Sent [address] [place] [address] [phone] Ortiz' office denied referral per Jacinto. Closed 12/10FP [address] [place] [address] [phone] Kvng Gamez NP Sent [address] [place] [address] [place] [address] [phone] Loni Hill MD Patient with past episodes of unexplained Sent syncope and collapse. 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 She wants to transfer her cardiac care from the local group. Resent Ref 08/18/19 Pt called office and stated she did not want to be seen there. [facility] [address] [place] [address] [phone]
--- OUTSIDE RECORDS SUMMARY | 2020-02-14 09:05 | XMS REPORT | Continuity of Care Document ---
:1980 External Reference #:[id number] Author Name Morena Blackburn M.D. (transmitted by agent of provider Sonali Zavala) Address [address] [place] [address] Care Team Providers Name Role Phone Anitra Pearce MD - Gastroenterology Care Team Information Supervisor [employer]er System Jane Mcdaniels MD - Neurology Care Team Information Supervisor [employer]er [employer] [phone] Bernard Melvin MD - Neurology Care Team Information Supervisor [employer]er System [phone] Wilfred Curiel MD - Gastroenterology Care Team Information Supervisor Sewer System [phone] Nusrat Montes MD - Obstetrics & Care Team Information Supervisor [employer]er System [phone] Gynecology Julianna Knight M.D. - Family Medicine Care Team Information Supervisor Sewer System [phone] Problems Active Problems Provider Date Generalized convulsive [...] Sodium take one tablet by 90tabs K21.9 Lainet Gold, 07/04 mouth every MD 40mg Tablets DR morning on empty stomach Briefs Overnight for use 4 times 120units Julianna Knight MD 02/06/2017 Large daily and as Misc needed waist is 45-58 inches, fitted briefs. needs velcro tabs Ipratropium inhale contents of 90ml R06.02 Mariama 01/22/2017 [place]/Albuterol 1 vial via Roly Torres Sulfate nebulizer [...] use with inhalers 1unparviz Knight MD 05/12/2013 [facility] Portable Nebulizer use [...] Optichamber Julia For Use With Unknown Inhalers [facility] Nasacort Allergy 2 puffs each nare Unknown 24HR every in the 55mcg/Act morning Aerosol Xyzal Allergy 24HR 1 by mouth every Unknown day 5mg Tablets Nystatin apply to affected 30units Julianna Knight MD area(s) two times [id number]/GM Cream a day as needed Spiriva Respimat [...] days Ketorolac 1 tab by mouth 20tabs oMrena Meridabere, 10/30/2019 - Tromethamine every 6 hours M.D. 11/06/2019 10mg as needed for Tablets pain Benzonatate take 1 tab by 30caps R05 Lianet oGld, 10/02/2019 - 100mg mouth up to 3 MD 11/06/2019 Capsules times daily as needed for cough Medications Administered in Office Medication SIG Qnty Indications Ordering Provider Date Records Fee Henrik James, 11/06/2019 Injection M.D. Records Fee Henrik James, 09/08/2019 Injection M.D. Records Fee Julianna Knight MD 05/13/2019 Injection PPD Nurse Visit A 01/07/2018 Injection Immunizations CPT Code Status Date Vaccine Lot # [id number] Given 07/14/2019 Influ Virus Vaccine, Quadrivalent, Split Virus, [place] [id number] Given 06/07/2016 Pneumonia Vaccine [id number] Given 09/22/2015 Fluvirin Im 3Yrs And Older 45750 Given 08/04/2013 Flu Vaccine Split Virus Preservative Free For [id number] Indiv 3Yr Older [id number] Given 03/19/2011 Tdap - Tetanus/Diptheria/Acellular Pertussis [id number] Vital Signs Date Vital Result Comment 12/26/2019 [...] Range Note Influenza A & B 01/19/2020 [facility] Flu AB (SEE NOTE) [address] Disclaimer [place] [id number] [phone] Influenza A Molecular Negative Negative Influenza B Molecular Negative Negative 2 CBC Auto 01/19/2020 [facility] White Blood 10.2 10^3/uL Normal 3.5-10.[address] [place] [address] [phone] Red Blood Count 4.35 10^6/uL Normal 3.70-4.87 [...] Blood Cells % 0.0 Comp Metabolic 01/19/2020 [facility] Sodium 139 mmol/L Normal 135-[address] [place] [address] [phone] Potassium 3.6 mmol/L Normal 3.5-5.0 Chloride 107 [...] Egfr 86.8 >60 3 Laboratory test 01/19/2020 [facility] C Reactive 21.52 mg/L High <8.[address] [place] [address] [phone] Covid19, PCR Undetected Undetected 4 CBC Auto 08/27/2019 [facility] White Blood 10.1 10^3/uL Normal 3.5-10.[address] [place] [address] [phone] Red Blood Count 4.60 10^6/uL Normal 3.70-4.87 [...] Blood Cells % 0.1 Comp Metabolic 08/27/2019 [facility] Sodium 141 mmol/L Normal 135-[address] [place] [address] [phone] Potassium 3.5 mmol/L Normal 3.5-5.0 Chloride 108 [...] Egfr 94.3 >60 5 Laboratory test 08/27/2019 [facility] Acetaminophen < 15 g/mL [address] [place] [address] [phone] Alcohol < 10 mg/dL Normal <10 Salicylate < 2.50 mg/dL <30 TSH (Thyroid Stim Horm) 7.00 mcIU/mL High 0.34-5.60 Urinalysis Profile 08/27/2019 [facility] Urine Color Yellow [address] [place] [address] [phone] Urine Appearance Clear Urine Specific [place] 1.024 Normal 1.010-1.030 Urine pH 5.0 Normal [...] Cell Present Abnormal Absent Urine Drug 08/27/2019 [facility] Urine None Detected None Detect SCR ED & [address] Amphetamine [place] [address] Screen [phone] Urine Barbiturates Screen None Detected None Detect Urine Benzodiazepine Screen None Detected None Detect Urine Cannabinoids Screen None Detected None Detect Urine Cocaine Screen None Detected None Detect Urine Opiates Screen None Detected None Detect Urine Phencyclidine Screen None Detected None Detect 7 Urine Culture And 08/27/2019 [facility] Urine Culture SEE RESULT [address] [place] [address] [phone] 1 Suboptimal collection technique may reduce sensitivity of test. Refer to the [employer] Test Catalog for collection information: [email or web address].testcatalog.org As with all diagnostic procedures, the laboratory results obtained should be used in conjunction with other clinical information available to the physician, including confirmation by another method, as applicable. 2 Undergraduate Internship: [id number] 3 Because ethnic data is not always [...] performed using the chasity SARS-CoV-2 assay ([employer] on the chasity 6800 System. Fact sheets for this Emergency Use Authorization (EUA) assay can be found at the following links: For Healthcare Providers: https://www.fda.gov/media/096219/download For Patients: https://www.fda.gov/media/424954/download Test Performed by: [facility] [address] [place] [address] Horn Player: Humberto Braun M.D. Ph.D.; CLIA# [id number] 5 Because ethnic data is not always [...] [address]: Hang Jara MD Acct: [id number] Unit: [id number] AGE: 39 Location: ED Re08/27/19 SEX: F Status: REG ER SPEC: [id number] SISI: 08/27/19-1636 [facility] [address]: Cinthya SANTILLAN REQ: [id number] RECD: 08/27/19 STATUS:COMP [facility] DR: Hang Knight MD _ SOURCE: URINE SPDESC: ORDERED: Urine Culture Procedure Result Reported Site Urine Culture Final 08/28/19- 1751 ML No growth of clinically significant organisms * ML - Main Lab . END OF REPORT DEPARTMENT OF PATHOLOGY, [address] [place] [address] Darek Fry M.D. Director [facility] # [id number] Procedures Date Code Description Status 10/03/2018 42408095 Mammogram Completed 06/25/2014 [id number] Colonoscopy Completed 04/10/2014 [id number] Colonoscopy Completed 09/09/2013 [id number] Mammogram Completed Medical Devices Description No Information Available Encounters Type Date Location Provider Dx Diagnosis Office Visit 01/29/2020 [facility] Morena M75.42 Impingement 9:15a at Parul Blackburn M.D. syndrome of left shoulder Office Visit 01/14/2020 Rodolfo Saxena NP J45.901 Unspecified asthma 10:[facility] R05 Cough M54.5 Low back pain Office Visit 12/26/2019 Rodolfo Saxena NP M54.5 Low back pain 10:00a Medicine - [facility] Office Visit 12/10/2019 [place] Morena M75.42 Impingement 2:00p Orthopedics at Roly Blackburn syndrome of left [place] shoulder Office Visit 11/19/2019 [place] Heatherlindsey Saldivar, M25.512 Pain in left 1:45p Orthopedics at [facility] shoulder [place] Office Visit 11/06/2019 [facility] Internal Lianet M54.5 Low back pain 11:00a Medicine - Angelica Gold MD M25.512 Pain in left shoulder J45.909 Unspecified asthma, uncomplicated G40.909 Epilepsy, unsp, not intractable, without status epilepticus Office Visit 10/30/2019 11:15a [facility] Heather Saldivar, M25.512 Pain in left at [facility] shoulder Office Visit 10/02/2019 11:20a [facility] Internal Lianet R05 Cough Medicine - Angelica Gold MD J45.909 Unspecified asthma, uncomplicated Assessments Date Code Description Provider 01/29/2020 M75.42 Impingement syndrome of left shoulder Morena Blackburn M.D. 01/14/2020 J45.901 Unspecified asthma with (acute) Kunal Odessa, [employer] exacerbation 01/14/2020 R05 Cough Kunal Odessa, [employer] 01/14/2020 M54.5 Low back pain Kunal Odessa, [employer] 01/05/2020 G40.909 Epilepsy, unspecified, not Kunal Odessa, [employer] intractable, without status epilepticus 01/05/2020 J45.909 Unspecified asthma, uncomplicated Kunal Odessa, [employer] 01/05/2020 R73.9 Hyperglycemia, unspecified Kunal Odessa, [employer] 01/05/2020 Z12.31 Encounter for screening mammogram for Kunal Odessa, [employer] malignant neoplasm of breast 12/26/2019 M54.5 Low back pain Kunal Odessa, [employer] 12/10/2019 M75.42 Impingement syndrome of left shoulder Morena Blackburn M.D. 11/19/2019 M25.512 Pain in left shoulder Heather Saldivar [facility] 11/19/2019 M25.512 Pain in left shoulder Morena [...] due to excess Henrik James M.D. calories Plan of Treatment Future Appointment(s):03/22/2020 11:30 am - Morena Blackburn M.D. at [facility] [place]/25/2020 1:00 pm - Mandeep Patel M.D. at [facility]01/29/2020 - Morena Blackburn M.D.M75.42 Impingement syndrome of left shoulderFollow up:Follow up: 8 weeks Functional Status Description No Information Available Mental Status Description No Information Available Referrals Refer to Dr Reason for Referral Status Appt Date Wendy Cameron MD Sent [address] [place] [address] [phone] Ortiz' office denied referral per Jacinto. Closed 12/10FP [address] [place] [address] [phone] Kvng Gamez NP Sent [address] [place] [address] [phone] Loni Hill MD Patient with past episodes of unexplained Sent syncope and collapse. 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 She wants to transfer her cardiac care from the local group. Resent Ref 08/18/19 Pt called office and stated she did not want to be seen there. [address] [facility] [address] [place] [address] [phone]
[2020-02-14 09:37] LABS: ABS Basophils 0.1 10^3/ul (0-0.2); ABS Eosinophils 0.2 10^3/ul (0-0.6); ABS Lymphocytes 1.4 10^3/ul (1.0-4.8); ABS Monocytes 0.3 10^3/ul (0-0.8); ABS Neutrophils 5.7 10^3/ul (1.5-7.7); Eosinophil % 2.7 %; Hematocrit 38 % (35-47); Hemoglobin 12.5 g/dL (12.0-16.0); Lymphocyte % 18.1 %; Mean Corpuscular HGB Conc 33 g/dL (31-36); Mean Corpuscular Hemoglobin 28 pg (27-31); Mean Corpuscular Volume 85 fL (80-97); Mean Platelet Volume 8.8 fL (7.4-10.4); Nucleated Red Blood Cells % 0.2; Platelet Count 64 10^3/uL (150-450); Red Blood Count 4.52 10^6 /uL (3.70-4.87); Red Cell Distribution Width 16 % (10-15); White Blood Count 7.7 10^3/uL (3.5-10.8)
[2020-02-14 09:44] LABS: ALT 18 U/L (7-52); Albumin/Globulin Ratio 1.3 (1-3); Alkaline Phosphatase 75 U/L (34-104); BUN/Creatinine Ratio 17.4 (8-20); Blood Urea Nitrogen 15 mg/dL (6-24); CO2 Carbon Dioxide 20 mmol/L (22-32); Chloride 109 mmol/L (101-111); EGFR Non-African American 72.7 (>60); Globulin 3.2 g/dL (2-4); Glucose 154 mg/dL (70-100); Sodium 137 mmol/L (135-145); Total Protein 7.2 g/dL (6.4-8.9)
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
[2020-02-14 10:56] LABS: Anion Gap 8 mmol/L (2-11)
[2020-02-14 10:59] VITALS: BP 129/74
== END 2020-02-14 10:40 | disposition home or self-care (01) ==
LOC: ED 08:34
DX: R07.89 Other chest pain (principal); R05 Cough; J45.909 Unspecified asthma, uncomplicated; E07.9 Disorder of thyroid, unspecified; Z79.52 Long term (current) use of systemic steroids; K21.9 Gastro-esophageal reflux disease without esophagitis; F43.10 Post-traumatic stress disorder, unspecified; F17.210 Nicotine dependence, cigarettes, uncomplicated
CPT/HCPCS: 36415; 71046; 80053; 84484; 85025; 93005; 99284; A9270-GY

== ENCOUNTER 2021-02-21 22:45 | Observation (INO) ==
[2021-02-21] MEDS ORDERED: Al Hydrox/Mg Hydrox/Simet LIQ 30 ML UDC PO ONE (23:02)
[2021-02-22 01:24] LABS: ABS Basophils 0.1 10^3/ul (0-0.2); ABS Lymphocytes 0.8 10^3/ul (1.0-4.8); ABS Monocytes 0.3 10^3/ul (0-0.8); ABS Neutrophils 11.8 10^3/ul (1.5-7.7); Eosinophil % 0.1 %; Hematocrit 40 % (35-47); Hemoglobin 13.5 g/dL (12.0-16.0); Lymphocyte % 6.1 %; Mean Corpuscular HGB Conc 34 g/dL (31-36); Mean Corpuscular Hemoglobin 29 pg (27-31); Mean Corpuscular Volume 86 fL (80-97); Mean Platelet Volume 8.1 fL (7.4-10.4); Platelet Count 276 10^3/uL (150-450); Red Cell Distribution Width 14 % (10-15)
[2021-02-22 01:41] LABS: Albumin 4.7 g/dL (3.2-5.2); Albumin/Globulin Ratio 1.3 (1-3); C Reactive Protein 20.28 mg/L (<8.01); EGFR African American 64.6 (>60); EGFR Non-African American 53.3 (>60); Globulin 3.5 g/dL (2-4); Potassium 3.8 mmol/L (3.5-5.0); Total Bilirubin 0.6 mg/dL (0.2-1.0); Total Protein 8.2 g/dL (6.4-8.9)
[2021-02-22] MEDS ORDERED: Iodixanol (CONTRAST) 320 MG/ML 100 ML SDV IV ONE (01:57)
[2021-02-22] MEDS ORDERED: oxyCODONE/Acetamin 5/325 mg TAB PO ONE (03:21)
[2021-02-22 03:23] LABS: Urine Appearance Cloudy; Urine Bilirubin Negative (Negative); Urine Blood Negative (Negative); Urine Color Yellow; Urine Glucose Negative (Negative); Urine Ketones 1+ (Negative); Urine Nitrite Negative (Negative); Urine Protein 2+(100 mg/dL) (Negative); Urine Specific Gravity 1.023 (1.002-1.030); Urine Urobilinogen Negative (Negative)
[2021-02-22 03:44] LABS: Urine Bacteria 1+ (Absent); Urine Red Blood Cell 2+(6-10/hpf) (Absent); Urine Squamous Epithelial Cell Present (Absent); Urine White Blood Cell Trace(0-5/hpf) (Absent)
[2021-02-22] MEDS ORDERED: Ondansetron 4 mg VIAL 2 MG/ML 2 ml VIAL IV ONE (05:13)
[2021-02-22] MEDS ORDERED: Ciprofloxacin 400mg IVPREMIX 400 MG/200 ML BAG IVPB ONE (05:14)
[2021-02-22] MEDS ORDERED: Ondansetron 4 mg VIAL 2 MG/ML 2 ml VIAL IV PRN (06:22)
[2021-02-22] MEDS ORDERED: Albuterol/Ipratropium NEB.SOL (2.5/0.5 MG) 3 ML NEB.SOLN INH PRN (06:36)
[2021-02-22] MEDS ORDERED: Albuterol HFA INHALER 8 gm MDI INH PRN (06:36)
[2021-02-22] MEDS: Morphine 2 MG/ML SYRINGE IV PRN ×2 (08:50→12:43)
[2021-02-22] MEDS: cefTRIAXone 1 gm/50 mL NS BAG 1 GM/50 ML BAG IVPB SCH (08:51)
[2021-02-22 08:57] LABS: ABS Basophils 0.1 10^3/ul (0-0.2); ABS Lymphocytes 1.6 10^3/ul (1.0-4.8); ABS Monocytes 0.9 10^3/ul (0-0.8); Eosinophil % 0.3 %; Hematocrit 38 % (35-47); Hemoglobin 12.5 g/dL (12.0-16.0); Lymphocyte % 11.7 %; Mean Corpuscular HGB Conc 33 g/dL (31-36); Mean Corpuscular Hemoglobin 29 pg (27-31); Mean Corpuscular Volume 87 fL (80-97); Mean Platelet Volume 8.5 fL (7.4-10.4); Platelet Count 273 10^3/uL (150-450); Red Blood Count 4.33 10^6 /uL (3.70-4.87); Red Cell Distribution Width 14 % (10-15); White Blood Count 13.7 10^3/uL (3.5-10.8)
[2021-02-22 09:12] LABS: Activated Partial Thrombo Time 28.1 seconds (26.0-38.0); INR 1.21 (0.82-1.09)
[2021-02-22 09:14] LABS: Calcium 9.3 mg/dL (8.6-10.3); EGFR African American 53.4 (>60); EGFR Non-African American 44.1 (>60); Potassium 3.7 mmol/L (3.5-5.0)
[2021-02-22] MEDS: Mometasone/Formoter 100/5 MDI INH SCH ×2 (12:24→20:13)
[2021-02-22] MEDS: SPIRIVA Respimat (tiotropium) 2.5 mcg/inh Inhaler INH SCH (12:25)
[2021-02-22] MEDS: NS 0.9% 1000 ml BAG 1,000 ML IV SCH ×2 (12:34→20:54)
[2021-02-22] MEDS: Heparin 5000 UNITS/ML 1 mL VIAL SUBCUT SCH ×2 (14:46→22:25)
[2021-02-22] MEDS ORDERED: oxyCODONE/Acetamin 5/325 mg TAB PO PRN (17:09)
[2021-02-22] MEDS: oxyCODONE/Acetamin 5/325 mg TAB PO PRN (18:28)
[2021-02-23] MEDS: NS 0.9% 1000 ml BAG 1,000 ML IV SCH (05:02)
[2021-02-23] MEDS: oxyCODONE/Acetamin 5/325 mg TAB PO PRN ×2 (05:03→13:11)
[2021-02-23] MEDS: Heparin 5000 UNITS/ML 1 mL VIAL SUBCUT SCH ×2 (05:04→14:04)
[2021-02-23] MEDS: Mometasone/Formoter 100/5 MDI INH SCH (08:40)
[2021-02-23] MEDS: SPIRIVA Respimat (tiotropium) 2.5 mcg/inh Inhaler INH SCH (08:41)
[2021-02-23] MEDS: cefTRIAXone 1 gm/50 mL NS BAG 1 GM/50 ML BAG IVPB SCH (09:44)
[2021-02-23 11:16] LABS: ABS Basophils 0.1 10^3/ul (0-0.2); ABS Eosinophils 0.2 10^3/ul (0-0.6); ABS Lymphocytes 2.2 10^3/ul (1.0-4.8); ABS Monocytes 0.5 10^3/ul (0-0.8); ABS Neutrophils 4.9 10^3/ul (1.5-7.7); Eosinophil % 2.9 %; Hematocrit 34 % (35-47); Hemoglobin 11.3 g/dL (12.0-16.0); Lymphocyte % 28.4 %; Mean Corpuscular HGB Conc 33 g/dL (31-36); Mean Corpuscular Hemoglobin 29 pg (27-31); Mean Corpuscular Volume 88 fL (80-97); Mean Platelet Volume 8.4 fL (7.4-10.4); Nucleated Red Blood Cells % 0.1; Platelet Count 225 10^3/uL (150-450); Red Blood Count 3.86 10^6 /uL (3.70-4.87); Red Cell Distribution Width 15 % (10-15); White Blood Count 7.9 10^3/uL (3.5-10.8)
[2021-02-23 11:24] VITALS: BP 132/68
[2021-02-23 11:50] LABS: Calcium 8.5 mg/dL (8.6-10.3); EGFR African American 55.1 (>60); EGFR Non-African American 45.5 (>60); Potassium 3.7 mmol/L (3.5-5.0)
== END 2021-02-23 15:15 | disposition home or self-care (01) ==
LOC: SSU 22:45 → ED 22:45 → SSU 02-22 12:20
PROVIDERS: ADMIT Hospitalist; ATTEND Internal Medicine